=== PATIENT | female | born 1990 | race African-American/Black ===

== ENCOUNTER 2017-12-12 19:27 | Emergency (ER) | payer BC, SELFPAY ==
[2017-12-12 20:57] LABS: Urine Bacteria 20-50 /HPF (<20); Urine Culture Reflex Order NOT NEEDED; Urine RBC <5 /HPF (NONE SEEN); Urine Trichomonas PRESENT (NONE SEEN)
[2017-12-12 21:07] LABS: Urine Blood NEGATIVE (NEG); Urine Glucose NEGATIVE (NEG); Urine Protein NEGATIVE (NEG); Urine Specific Gravity >1.030 (1.005-1.030); Urine pH 5.5 (5.0-7.0)
--- NOTE | 2017-12-12 21:23 | EDPHYS ---
Physician Documentation [facility] Name: Niharika Ramirez Age: 27 yrs Sex: Female : 1990 Arrival Date: 12/12/2017 Time: 19:28 Bed 26 Private MD: ED Physician Rancho Turner HPI: 12/12 20:18 This 27 yrs old Black Female presents to ER via Ambulatory with complaints of Pelvic snw Pain - 13 Weeks Preg. 20:18 The patient presents with pelvic pain, that is located in/on the suprapubic area. snw Onset: The symptoms/episode began/occurred gradually. Modifying factors: The symptoms are alleviated by nothing. Severity of symptoms: At their worst the symptoms were moderate. The patient's method of control includes nothing. The patient has experienced a previous episode. It is unknown whether or not the patient has recently seen a physician, sees sriram CACERES'lawrence for UTI one month ago. 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 - Social history:: Smoking status: Patient/guardian denies using tobacco. ROS: 20:18 Constitutional: Negative for fever, chills, and weight loss, Eyes: Negative for injury, snw pain, redness, and discharge, ENT: Negative for injury, pain, and discharge, Neck: Negative for injury, pain, and swelling, Cardiovascular: Negative for chest pain, palpitations, and edema, Respiratory: Negative for shortness of breath, cough, wheezing, and pleuritic chest pain, Abdomen/GI: Negative for abdominal pain, nausea, vomiting, diarrhea, and constipation. Positive for lower central abdomen/pelvis pressure Back: Negative for injury and pain, : Negative for injury, bleeding, discharge, and swelling, MS/Extremity: Negative for injury and deformity, Skin: Negative for injury, rash, and discoloration, Neuro: Negative for headache, weakness, numbness, tingling, and seizure. Exam: 20:08 Constitutional: This is a well developed, well nourished patient who is awake, alert, snw and in no acute distress. Head/Face: Normocephalic, atraumatic. Eyes: Pupils equal round and reactive to light, extra-ocular motions intact. Lids and lashes normal. Conjunctiva and sclera are non-icteric and not injected. Cornea within normal limits. Periorbital areas with no swelling, redness, or edema. ENT: Nares patent. No nasal discharge, no septal abnormalities noted. Tympanic membranes are normal and external auditory canals are clear. Oropharynx with no redness, swelling, or masses, exudates, or evidence of obstruction, uvula midline. Mucous membranes moist. Neck: Trachea midline, no thyromegaly or masses palpated, and no cervical lymphadenopathy. Supple, full range of motion without nuchal rigidity, or vertebral point tenderness. No Meningismus. Chest/axilla: Normal chest wall appearance and motion. Nontender with no deformity. No lesions are appreciated. Cardiovascular: Regular rate and rhythm with a normal S1 and S2. No gallops, murmurs, or rubs. Normal PMI, no JVD. No pulse deficits. Respiratory: Lungs have equal breath sounds bilaterally, clear to auscultation and percussion. No rales, rhonchi or wheezes noted. No increased work of breathing, no retractions or nasal flaring. Back: No spinal tenderness. No costovertebral tenderness. Full range of motion. Skin: Warm, dry with normal turgor. Normal color with no rashes, no lesions, and no evidence of cellulitis. MS/ Extremity: Pulses equal, no cyanosis. Neurovascular intact. Full, normal range of motion. Neuro: Awake and alert, GCS 15, oriented to person, place, time, and situation. Cranial nerves II-XII grossly intact. Motor strength 5/5 in all extremities. Sensory grossly intact. Cerebellar exam normal. Normal gait. Psych: Awake, alert, with orientation to person, place and time. Behavior, mood, and affect are within normal limits. 20:08 Abdomen/GI: Inspection: gravid appearance, is noted, Bowel sounds: normal, Palpation: soft, mild abdominal tenderness, in the suprapubic area. Vital Signs: 19:32 BP 131 / 80; Pulse 94; Resp 16; Temp 98.4; Pulse Ox 100% on R/A; Weight 54.88 kg; aa1 Height 5 ft. 8 in. (172.72 cm); Pain 6/10; 20:41 BP 124 / 77; Pulse 82; Resp 16; Pulse Ox 99% on R/A; Pain 6/10; ao 21:48 BP 126 / 74; Pulse 83; Resp 16; Pulse Ox 100% on R/A; ao 19:32 Body Mass Index 18.40 (54.88 kg, 172.72 cm) aa1 MDM: 19:37 Patient medically screened. snw 21:23 Data reviewed: vital signs, nurses notes. Data interpreted: Pulse oximetry: on room air snw is 99 %. Interpretation: normal. Counseling: I had a detailed discussion with the patient and/or guardian regarding: the historical points, exam findings, and any diagnostic results supporting the discharge/admit diagnosis, lab results, the need for outpatient follow up, to return to the emergency department if symptoms worsen or persist or if there are any questions or concerns that arise at home. Special discussion: Based on the patient's Hx, exam, and Dx evaluation, there is no indication for emergent surgery or inpatient Tx. It is understood by the patient/guardian that if the Sx's persist or worsen they need to return immediately for re-evaluation. Based on the history and exam findings, there is no indication for further emergent testing or inpatient evaluation. I discussed with the patient/guardian the need to see the OB Gyne specialist for further evaluation of the symptoms. 12/12 19:43 Order name: Urine Culture [facility] 12/12 19:43 Order name: Urine Microscopic Only [facility] 12/12 19:44 Order name: Urine Culture [facility] 12/12 19:44 Order name: Urine Microscopic Only; Complete Time: 21:20 EDMD 12/12 20:02 Order name: Urine Dipstick--Ancillary (enter results); Complete Time: 21:20 [facility] 12/12 20:02 Order name: Urine --Ancillary (enter results); Complete Time: 21:20 [facility] 12/12 19:43 Order name: Urine Test (obtain specimen); Complete Time: 20:01 snw 12/12 19:43 Order name: Urine Dipstick-Ancillary (obtain specimen); Complete Time: 20:01 snw Administered Medications: 21:35 Drug: Flagyl 2 grams Route: PO; ao 22:07 Follow up: Response: No adverse reaction ao Disposition: 12/13 09:09 Co-signature as Attending Physician, Rancho Turner MD I agree with the assessment and [facility] plan of care. Disposition: 12/12/17 21:22 Discharged to Home. Impression: Trichomoniasis, unspecified. - Condition is Stable. - Discharge Instructions: Sexually Transmitted Disease, Trichomoniasis, Second Trimester of , [id number]. - Medication Reconciliation Form, Thank You Letter, Antibiotic Education, Prescription Opioid Use form. - Follow up: Private Physician; When: Tomorrow; Reason: Recheck today's complaints, Continuance of care, Re-evaluation by your physician. Follow up: Emergency Department; When: As needed; Reason: Worsening of condition. Signatures: Dispatcher [employer] Paige Pritchett, RN RN aa1 Rancho Turner MD MD cha Therrien, Shelly, TILE GRADER-C TILE GRADER-Csnw Timoteo Mercer RN RN ao
--- NOTE | 2017-12-12 21:23 | ER ---
Nurse's Notes [facility] Name: Niharika Ramirez Age: 27 yrs Sex: Female : 1990 Arrival Date: 12/12/2017 Time: 19:28 Bed 26 Private MD: Diagnosis: Trichomoniasis, unspecified Presentation: 12/12 19:30 Presenting complaint: Patient states: she is 13 weeks and started having aa1 pelvic pain yesterday. Denies bleeding. States she has already seen OB for this and had confirmed IUP. Transition of care: patient was not received from another setting of care. Onset of symptoms was December 11, 2017. Care prior to arrival: None. 19:30 Method Of Arrival: Ambulatory aa1 19:30 Acuity: CALEB 4 aa1 Triage Assessment: 19:32 General: Appears in no apparent distress. comfortable, Behavior is calm, cooperative, aa1 appropriate for age. 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 - Social history:: Smoking status: Patient/guardian denies using tobacco. Screenin:17 Abuse screen: Denies threats or abuse. Denies injuries from another. Nutritional ao screening: No deficits noted. Tuberculosis screening: No symptoms or risk factors identified. Fall Risk None identified. Assessment: 20:16 General: Appears in no apparent distress. comfortable, Behavior is calm, cooperative, ao appropriate for age. Pain: Complains of pain in back Pain currently is 6 out of 10 on a pain scale. Neuro: Level of Consciousness is awake, alert, obeys commands, Oriented to person, place, time, situation, Appropriate for age Moves all extremities. Speech is normal, Facial symmetry appears normal, Pupils are PERRLA. Cardiovascular: Capillary refill < 3 seconds Patient's skin is warm and dry. Respiratory: Airway is patent Respiratory effort is even, unlabored, Respiratory pattern is regular, symmetrical. GI: Abdomen is non-distended. : Urine is yellow. EENT: No signs and/or symptoms were reported regarding the EENT system. Derm: No signs and/or symptoms reported regarding the dermatologic system. Musculoskeletal: No signs and/or symptoms reported regarding the musculoskeletal system. 20:41 Reassessment: Patient appears in no apparent distress at this time. Patient and/or ao family updated on plan of care and expected duration. Pain level reassessed. Patient is alert, oriented x 3, equal unlabored respirations, skin warm/dry/pink. Patient is in pain but does not require pain medication. 21:48 Reassessment: Patient appears in no apparent distress at this time. Patient and/or ao family updated on plan of care and expected duration. Pain level reassessed. Patient is alert, oriented x 3, equal unlabored respirations, skin warm/dry/pink. Patient is for discharge and waiting on provider to see patient. Vital Signs: 19:32 BP 131 / 80; Pulse 94; Resp 16; Temp 98.4; Pulse Ox 100% on R/A; Weight 54.88 kg; aa1 Height 5 ft. 8 in. (172.72 cm); Pain 6/10; 20:41 BP 124 / 77; Pulse 82; Resp 16; Pulse Ox 99% on R/A; Pain 6/10; ao 21:48 BP 126 / 74; Pulse 83; Resp 16; Pulse Ox 100% on R/A; ao 19:32 Body Mass Index 18.40 (54.88 kg, 172.72 cm) aa1 ED Course: 19:28 Patient arrived in ED. as 19:32 Triage completed. aa1 19:32 Arm band placed on right wrist. aa1 19:37 Ifrah Bowen FNP-C is [facility]. snw 19:37 Rancho Turner MD is Attending Physician. snw 19:50 Timoteo Mercer RN is Primary Nurse. ao 20:17 Patient has correct armband on for positive identification. Pulse ox on. NIBP on. ao 20:35 Urine Microscopic Only Sent. ao 20:35 Urine Culture Sent. ao 20:35 Urine Culture Sent. ao 20:35 Urine Microscopic Only Sent. ao 22:06 No provider procedures requiring assistance completed. Patient did not have IV access ao during this emergency room visit. Administered Medications: 21:35 Drug: Flagyl 2 grams Route: PO; ao 22:07 Follow up: Response: No adverse reaction ao Outcome: 21:22 Discharge ordered by . snw 22:06 Discharged to home ambulatory. ao 22:06 Condition: stable 22:06 Discharge instructions given to patient, Instructed on discharge instructions, follow up and referral plans. Demonstrated understanding of instructions, follow-up care, medications. 22:07 Patient left the ED. ao Addendum: 12/16/2017 16:40 Addendum: Culture Results: Positive urine culture. Phone call Attempt #1 called at s s [phone], not a working number. Signatures: Paige Bianchi RN RN aa1 Ifrah Bowen, NURSE EXAMINER-C NURSE EXAMINER-Noblew Viji Gonzalez Shelby, RN RN Timoteo Mercer RN RN ao
[2017-12-12] MEDS ORDERED: metroNIDAZOLE 500 MG TABLET ONE (21:33)
[2017-12-12 22:17] VITALS: TEMP 98.4
[2017-12-12 22:20] VITALS: BP 126/74; O2SAT 100
== END 2017-12-12 22:07 | disposition home or self-care (01) ==
LOC: ER 19:27
DX: A59.9 Trichomoniasis, unspecified (principal); Z3A.13 13 weeks gestation of pregnancy
CPT/HCPCS: 81003; 81015; 81025; 87077; 87086; 87088; 87186; 99283

== ENCOUNTER 2020-01-04 16:52 | Emergency (ER) | payer BC ==
--- OUTSIDE RECORDS SUMMARY | 2020-01-04 16:54 | XMS REPORT ---
:1990 Author Organization [facility] t Address [address] [place] [address] Dr. Cantu [address] [place] [id number] Care Team Providers Name Role Phone Unavailable Unavailable Unavailable Problems This patient has no known problems. Allergies, Adverse Reactions, Alerts This patient has no known allergies or adverse reactions. Medications This patient has no known medications.
[2020-01-04 18:59] LABS: Absolute Lymphocytes (CBC) 1.5 K/uL (0.7-4.9); Basophils % 0.8 % (0-1.3); Hematocrit 32.5 % (36.0-45.0); Lymphocytes % 21.5 % (15.3-44.8); MPV 9.2 fL (7.6-11.3); RBC Red Blood Cell Count 3.64 M/uL (3.86-4.86)
--- NOTE | 2020-01-04 19:12 | EDPHYS ---
Physician Documentation [facility] Name: Niharika Ramirez Age: 29 yrs Sex: Female : 1990 Arrival Date: 01/04/2020 Time: 16:53 Bed 8 Private MD: ED Physician Matt Dunn HPI: 01/03 18:03 This 29 yrs old Black Female presents to ER via Ambulatory with complaints of Nose kb Bleed, Dizziness. 18:03 The patient presents with a nose bleed, that is apparently anterior, from the right kb nare, occurred from an unknown cause, that is continuous causative factors include: unknown, and the bleeding resolved prior to arrival. Onset: The symptoms/episode began/occurred just prior to arrival. Modifying factors: The symptoms are alleviated by nothing. the symptoms are aggravated by nothing. Associated signs and symptoms: Loss of consciousness: the patient experienced no loss of consciousness, Pertinent positives: dizziness, weakness, palpitations. Severity of symptoms: At their worst the symptoms were moderate in the emergency department the symptoms have improved markedly. The patient has experienced similar episodes in the past, a few times. The patient has not recently seen a physician. Pt reports nosebleed that lasted approx 30 minutes, then she started having dizziness, weakness and palpitations. Weakness persists, but dizziness, nosebleed and palpitations resolved. 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 - Social history:: Smoking status: Patient denies any tobacco usage or history of. ROS: 18:02 Constitutional: Negative for fever, chills, and weight loss, Neck: Negative for injury, kb pain, and swelling, Respiratory: Negative for shortness of breath, cough, wheezing, and pleuritic chest pain, Abdomen/GI: Negative for abdominal pain, nausea, vomiting, diarrhea, and constipation, MS/Extremity: Negative for injury and deformity, Skin: Negative for injury, rash, and discoloration. 18:02 ENT: Positive for nose bleed. 18:02 Cardiovascular: Positive for palpitations. 18:02 Neuro: Positive for dizziness, weakness. Exam: 18:02 Constitutional: This is a well developed, well nourished patient who is awake, alert, kb and in no acute distress. Head/Face: Normocephalic, atraumatic. Neck: Trachea midline, no thyromegaly or masses palpated, and no cervical lymphadenopathy. Supple, full range of motion without nuchal rigidity, or vertebral point tenderness. No Meningismus. Chest/axilla: Normal chest wall appearance and motion. Nontender with no deformity. No lesions are appreciated. Cardiovascular: Regular rate and rhythm with a normal S1 and S2. No gallops, murmurs, or rubs. Normal PMI, no JVD. No pulse deficits. Respiratory: Lungs have equal breath sounds bilaterally, clear to auscultation and percussion. No rales, rhonchi or wheezes noted. No increased work of breathing, no retractions or nasal flaring. Abdomen/GI: Soft, non-tender, with normal bowel sounds. No distension or tympany. No guarding or rebound. No evidence of tenderness throughout. Skin: Warm, dry with normal turgor. Normal color with no rashes, no lesions, and no evidence of cellulitis. MS/ Extremity: Pulses equal, no cyanosis. Neurovascular intact. Full, normal range of motion. Neuro: Awake and alert, GCS 15, oriented to person, place, time, and situation. Cranial nerves II-XII grossly intact. Motor strength 5/5 in all extremities. Sensory grossly intact. Cerebellar exam normal. Normal gait. 18:02 ENT: Nose: clotted blood, in right nare. Vital Signs: 17:08 BP 118 / 78; Pulse 73; Resp 18 S; Temp 97.8; Pulse Ox 100% on R/A; Weight 54.88 kg (R); ca1 Height 5 ft. 8 in. (172.72 cm) (R); 17:30 BP 129 / 76 Supine; kj1 17:32 BP 127 / 80 Sitting; kj1 17:34 BP 140 / 82 Standing; kj1 18:26 BP 123 / 78; Pulse 67; Resp 17; Pulse Ox 100% ; bp 17:08 Body Mass Index 18.40 (54.88 kg, 172.72 cm) ca1 MDM: 17:15 Patient medically screened. kb 18:01 Data reviewed: vital signs, nurses notes. Data interpreted: Pulse oximetry: on room air kb is 100 %. Interpretation: normal. 18:03 Counseling: I had a detailed discussion with the patient and/or guardian regarding: the kb historical points, exam findings, and any diagnostic results supporting the discharge/admit diagnosis, lab results, the need for outpatient follow up, an ENT specialist, to return to the emergency department if symptoms worsen or persist or if there are any questions or concerns that arise at home. 01/03 17:27 Order name: CBC with Diff kb 01/03 17:28 Order name: CBC with Automated Diff; Complete Time: 19:11 EDMS 01/03 17:15 Order name: Orthostatics; Complete Time: 17:30 kb 01/03 17:27 Order name: EKG; Complete Time: 17:28 kb 01/03 17:27 Order name: EKG - Nurse/Tech; Complete Time: 17:57 kb Administered Medications: No medications were administered Disposition: 01/04 07:21 Co-signature as Attending Physician, Matt Dunn MD. rn Disposition: 01/04/20 19:11 Discharged to Home. Impression: Epistaxis, Weakness. - Condition is Stable. - Discharge Instructions: Weakness, [id number], Nosebleed, Vsfa-[id number]. - Medication Reconciliation Form, Thank You Letter, Antibiotic Education, Prescription Opioid Use, Work release form form. - Follow up: Emergency Department; When: As needed; Reason: Worsening of condition. Follow up: Private Physician; When: 2 - 3 days; Reason: Recheck today's complaints, Continuance of care, Re-evaluation by your physician. Signatures: Dispatcher [employer] [facility] Belle Liang, HOBBIES AND CRAFTS SALES REPRESENTATIVE-C HOBBIES AND CRAFTS SALES REPRESENTATIVE-Ckb Matt Dunn MD MD rn Acob, Clare, RN RN ca1 Corrections: (The following items were deleted from the chart) 01/03 19:23 19:11 01/04/2020 19:11 Discharged to Home. Impression: Epistaxis; Weakness. Condition ca1 is Stable. Discharge Instructions: Weakness, [id number], Nosebleed, [id number]-[id number]. Forms are Medication Reconciliation Form, Thank You Letter, Antibiotic Education, Prescription Opioid Use. Follow up: Emergency Department; When: As needed; Reason: Worsening of condition. Follow up: Private Physician; When: 2 - 3 days; Reason: Recheck today's complaints, Continuance of care, Re-evaluation by your physician. kb
--- NOTE | 2020-01-04 19:12 | ER ---
Nurse's Notes [facility] Name: Niharika Ramirez Age: 29 yrs Sex: Female : 1990 Arrival Date: 01/04/2020 Time: 16:53 Bed 8 Private MD: Diagnosis: Epistaxis;Weakness Presentation: 01/03 17:08 Chief complaint: Patient states: Nosebleed today around 1540, it lasted 30 minutes. ca1 Reports dizziness, weakness and palpitations after the nosebleed. Reports history of nosebleeds while . Coronavirus screen: Proceed with normal triage. Patient denies a cough. Patient denies shortness of breath or difficulty breathing. Patient denies measured and/or subjective temperature greater than 100.4F prior to today's visit. Patient denies travel on a cruise ship or to a country the [facility] currently lists as an affected area. Patient denies contact with known and/or suspected case of COVID-19. Ebola Screen: Patient negative for fever greater than or equal to 101.5 degrees Fahrenheit, and additional compatible Ebola Virus Disease symptoms Patient denies exposure to infectious person. Patient denies travel to an Ebola-affected area in the 21 days before illness onset. No symptoms or risks identified at this time. Initial Sepsis Screen: Does the patient meet any 2 criteria? No. Patient's initial sepsis screen is negative. Does the patient have a suspected source of infection? No. Patient's initial sepsis screen is negative. Risk Assessment: Do you want to hurt yourself or someone else? Patient reports no desire to harm self or others. Onset of symptoms was January 04, 2020 at 15:40. 17:08 Method Of Arrival: Ambulatory ca1 17:08 Acuity: CALEB 3 ca1 Triage Assessment: 17:16 General: Appears in no apparent distress. comfortable, Behavior is cooperative, bp appropriate for age, anxious. Pain: Denies pain. EENT: Reports NOSEBLEED. Neuro: No deficits noted. Cardiovascular: No deficits noted. Respiratory: No deficits noted. GI: No signs and/or symptoms were reported involving the gastrointestinal system. : No signs and/or symptoms were reported regarding the genitourinary system. Derm: No deficits noted. Musculoskeletal: No deficits noted. 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 - Social history:: Smoking status: Patient denies any tobacco usage or history of. Screenin:17 Abuse screen: Denies threats or abuse. Denies injuries from another. Nutritional bp screening: No deficits noted. Tuberculosis screening: No symptoms or risk factors identified. Fall Risk None identified. Assessment: 17:17 General: SEE TRIAGE NOTE. bp 18:26 Reassessment: PHLEBOTOMY CONTACTED FOR CBC REDRAW. bp Vital Signs: 17:08 BP 118 / 78; Pulse 73; Resp 18 S; Temp 97.8; Pulse Ox 100% on R/A; Weight 54.88 kg (R); ca1 Height 5 ft. 8 in. (172.72 cm) (R); 17:30 BP 129 / 76 Supine; kj1 17:32 BP 127 / 80 Sitting; kj1 17:34 BP 140 / 82 Standing; kj1 18:26 BP 123 / 78; Pulse 67; Resp 17; Pulse Ox 100% ; bp 17:08 Body Mass Index 18.40 (54.88 kg, 172.72 cm) ca1 ED Course: 16:53 Patient arrived in ED. ag5 17:12 Triage completed. ca1 17:12 Belle Laing [facility]-C [facility]. kb 17:13 Matt Dunn MD is Attending Physician. kb 17:13 Arm band placed on right wrist. ca1 17:15 Dieudonne Tapia, PABLO is Primary Nurse. bp 17:17 Patient has correct armband on for positive identification. Bed in low position. Call bp light in reach. Side rails up X2. 17:57 CBC with Automated Diff Sent. kj1 18:14 CBC with Diff Sent. kj1 19:22 No provider procedures requiring assistance completed. Patient did not have IV access iw during this emergency room visit. Administered Medications: No medications were administered Outcome: 19:11 Discharge ordered by . kb 19:22 Discharged to home ambulatory. iw 19:22 Condition: good 19:22 Discharge instructions given to patient, Instructed on discharge instructions, follow up and referral plans. Demonstrated understanding of instructions, follow-up care. 19:23 Patient left the ED. ca1 Signatures: Belle Liang, DIAMOND-Selam FIELDS-Sharla Khan RN RN iw Peltier, Brian, RN RN bp Acob, Cheryl, RN RN ca1 Luis Junior ag5 Kerri Liang kj1
[2020-01-04 19:30] VITALS: TEMP 97.8; O2SAT 100
[2020-01-04 19:35] VITALS: BP 123/78
--- NOTE | 2020-01-05 10:51 | EKG ---
Test Date: 2020-01-04 Test Time: 17:36:20 Traffic Incident Management Manager: LAURIE MEASUREMENT RESULTS: Intervals: Rate: 58 WI: 132 QRSD: 106 QT: 408 QTc: 400 Alicia: P: 65 WI: 132 QRS: 85 T: 53 INTERPRETIVE STATEMENTS: Sinus bradycardia Incomplete right bundle branch block Borderline ECG No previous ECG available for comparison Electronically Signed On 01-05-20 10:49:10 CDT by Dusty Hutchins
== END 2020-01-04 19:23 | disposition home or self-care (01) ==
LOC: ER 16:52
DX: R53.1 Weakness (principal)
CPT/HCPCS: 36415; 85025; 93005; 99283

== ENCOUNTER 2021-09-16 20:19 | Emergency (ER) | payer OTHER ==
--- OUTSIDE RECORDS SUMMARY | 2021-09-16 20:50 | XMS REPORT | Continuity of Care Document ---
:1990 Author Organization [facility] t Address [address] [place] [address] Care Team Providers Name Role Phone ANDREW Primary Care Physician Unavailable VALENTE Attending Clinician Unavailable Valente FIELDS Attending Clinician Unknown Attending Clinician Unavailable Moe FIELDS Attending Clinician JAIME Attending Clinician Unavailable Jaime ROCK Attending Clinician SULEMAN Attending Clinician Unavailable ANDRA GUO Attending Clinician Unavailable Bartolome RN, D Attending Clinician Unavailable Only, Db Test Attending Clinician Unavailable Jono FIELDS Attending Clinician JONO Attending Clinician Unavailable Suleman ROCK Attending Clinician Taurus ROCK Attending Clinician Andrew FIELDS Attending Clinician ANDREW Attending Clinician Unavailable NATALIE THAO Attending Clinician Unavailable ROYER Attending Clinician Unavailable CHANTAL Attending Clinician Unavailable Doctor Unassigned, Name Attending Clinician Unavailable Alvaro Thompson MD Attending Clinician ALVARO THOMPSON Attending Clinician Unavailable ALVARO THOMPSON Attending Clinician Unavailable Lab, Fam Pob I Attending Clinician Unavailable Gini Salazar MD Attending Clinician Jay Jay REESE Attending Clinician Unavailable Andra Gou MD Attending Clinician Nurse, Women's Health Attending Clinician Unavailable Kely GRANT Attending Clinician KELY Attending Clinician Unavailable Arthur ROCK Attending Clinician Pob, Lab Main Attending Clinician Unavailable Ultrasound, Mfm Attending Clinician Unavailable Noel ROCK F Attending Clinician 2, Lab Attending Clinician Unavailable Fanta Anthony MD Attending Clinician ARTHUR Admitting Clinician Unavailable SARI, ANDRA Admitting Clinician Unavailable SANDOVAL Admitting Clinician Unavailable Arthur ROCK Admitting Clinician Andra Guo MD Admitting Clinician Payers Payer Name Policy Type Policy Number Effective Date Expiration Date S javon [place] [facility] [id number] 2020 HEALTH 00:00:00 [employer] [place] [id number] 2017 00:00:00 [place] [facility] [id number] 2017 HEALTH CHIP 00:00:00 Advance Directives Directive Decision Effective Termination Comments Source Date Date Healthcare Agents on N/A Univ ersity FileNameRelationshipHealthcare [facility] Agent Medical RelationshipCommunication[facility] Care [phone] (Mobile) Problems Condition Condition Condition Status Onset Resolution Last Treating Co mments Source Name Details Category Date Date Treatment Clinician Date Elevated Elevated Disease Active Unive rs BP without BP without 3-11 [place] of diagnosis [place] 00:[place] of of 00 Medical hypertensi hypertensi Br anch on on Full-term Full-term Disease Active 2019-09 Uni vers premature premature 2-08 [place] of rupture [place] membranes membranes [address] [place] [address] with onset with onset Br anch of labor of labor more than more than 24 hours 24 hours following following rupture rupture Previous Previous Disease Active 2019- Unive rs 5-13 ity of section section 00:00: [address] Branch Supervisio Supervisio Disease Active 2019- U nivers n of other n of other 5-13 it y of normal normal 00:00: [place] 00 [facility] Branch History of History of Disease Active 2020-0 U nivers 5-13 [place] of delivery[place], [place] [facility] Branch Routine Routine Disease Active 2017-09 Univers 0-01 [place] of follow-up [place] 00:[place] 00 [facility] 38 weeks 38 weeks Disease Active Unive rs gestation gestation 9-10 ity of of of 00:00: [place] 00 [facility] Liveborn Liveborn Disease Active Unive rs infant, of infant, of 9-10 it y of [place] , , 00 Me dical born in born in [facility] hospital by by delivery delivery Supervisio Supervisio Disease Active U nivers n of n of 3-13 ity of high-risk high-risk 00:[place] [facility] Maternal Maternal Disease Active Overview: Un ron varicella, varicella, 2-14 Formattin ity of non-immune non-immune 00:00: g of this [place] 00 note Medical might be Branch different from the original. Address in Postpartu m period. Allergies, Adverse Reactions, Alerts Allergy Allergy Status Severity Reaction(s) Onset Inactive Treating Comm ents Source Name Type Date Date Clinician NO KNOWN Drug Active Univers ALLERGIE Class ity of S [facility] Social History Social Habit Start Date Stop Date Quantity Comments Source [facility]ION [facility]30 [facility] Exposure to Not sure [facility] SARS-CoV-2 [facility] (event) [place] Alcohol intake 2021-05-11 2021-05-11 [facility]00:00 non-drinker of [facility] alcohol [place] (finding) History SDOH 2020-08-11 2020-08-11 5 University o f Financial 00:00:00 00:00:00 [facility] Education 2020-08-10 2020-08-10 13 University 00:00:00 00:00:00 [facility] Tobacco use and 2017-10-16 2017-10-16 Never used Universit y of exposure 00:00:00 00:00:00 [facility] Sex Ass[birth year] At [birth year] Universit y of 00:00:00 00:00:00 [facility] Smoking Status Start Date Stop Date Source Never smoker [facility] Medications Ordered Filled Start Stop Current Ordering Indication Dosage Frequency Signature Comments Components Source Medication Medication Date Date Medication? Clinician (SIG) Name Name ondansetron 2020-09- No [id number] 4mg U nivers (ZOFRAN) 2- 12- ity of tablet 4 mg 00:45: 23:51 [place] 00 :00 Medical Branch ondansetron 2020-09- No [id number] 4mg 4 mg, Univers (ZOFRAN) 2-24 12- Oral, ity of tablet 4 mg 00:45: 23:51 ONCE, 1 [place] :[place] dose, On Medical [place] [facility] 08/25/21 at 1845, Routine ondansetron 2020-09 Yes [id number] 4mg Take 1 Univers 4 mg 2-23 tablet by ity of disintegrat 00:00: mouth [place] ing tablet 00 every 8 Medica l (eight) Branch hours as needed for Nausea and Vomiting (N/V). levoFLOXaci 2020-09 Yes [id number] 500mg Take 1 Univers n 1-23 tablet by ity of (LEVAQUIN) 00:00: mouth [place] 500 mg 00 every 24 Medical tablet (twenty-fo Branch ur) hours. benzonatate 2020-09 Yes [id number] 100mg Take 1 Univers 100 mg 1-23 capsule by ity of capsule 00:00: mouth 3 [place] 00 (three) Medical times Branch daily as needed for Cough. montelukast 2020-09 Yes [id number] 10mg Take 1 Univers 10 mg 1-23 tablet by ity of tablet 00:00: mouth [place] 00 every 24 Medical (twenty-fo Branch ur) hours as needed (symptoms) . loratadine 2020-09 Yes [id number] 10mg Take 1 U nivers 10 mg 1-23 tablet by ity of tablet 00:00: mouth [place] 00 daily. Medical Branch benzonatate 2020-09 Yes [id number] 100mg Take 1 Univers 100 mg 1-23 capsule by ity of capsule 00:00: mouth 3 [place] 00 (three) Medical times Branch daily as needed for Cough. montelukast 2020-09 Yes [id number] 10mg Take 1 Univers 10 mg 1-23 tablet by ity of tablet 00:00: mouth [place] 00 every 24 Medical (twenty-fo Branch ur) hours as needed (symptoms) . loratadine 2020-09 Yes [id number] 10mg Take 1 U nivers 10 mg 1-23 tablet by ity of tablet 00:00: mouth [place] 00 daily. Medical Branch levoFLOXaci 2020-09- No [id number] 500mg Take 1 Univers n 1-23 12-23 tablet by ity of (LEVAQUIN) 00:00: 00:00 mouth [place] 500 mg 00 :00 every 24 Medical tablet (twenty-fo Branch ur) hours. triamcinolo 2020- No [id number] 20mg [facility] 05-11 [id number] ity of acetonide 23:00: 21:52 [place] (KENALOG) 00 :00 Medical injection Branch 20 mg triamcinolo 2020- No [id number] 20mg 20 mg, [facility] ne 05-11 [id number] Intramuscu ity of acetonide 23:00: 21:52 lar, ONCE, [place] (KENALOG) 00 :00 1 dose, Medical injection Sun05/11/21 Bran ch 20 mg at 1800, Routine triamcinolo 2020- No [id number] 20mg [facility] 05-11 [id number] ity of acetonide 23:00: 21:52 [place] (KENALOG) 00 :00 Medical injection Branch 20 mg triamcinolo 2020- No [id number] 20mg 20 mg, [facility] 05-11 [id number] Intramuscu ity of acetonide 23:00: 21:52 lar, ONCE, [place] (KENALOG) 00 :00 1 dose, Medical injection Sun05/11/21 Bran ch 20 mg at 1800, Routine triamcinolo 2020- No [id number] 20mg [facility] 05-11 [id number] ity of acetonide 23:00: 21:52 [place] (KENALOG) 00 :00 Medical injection Branch 20 mg triamcinolo 2020- No [id number] 20mg 20 mg, [facility] 05-11 [id number] Intramuscu ity of acetonide 23:00: 21:52 lar, ONCE, [place] (KENALOG) 00 :00 1 dose, Medical injection Sun05/11/21 Bran ch 20 mg at 1800, Routine triamcinolo 2020- No [id number] 20mg Univers al 05-11 [id number] ity of acetonide 23:00: 21:52 [place] (KENALOG) 00 :00 Medical injection Branch 20 mg triamcinolo 2020- No [id number] 20mg 20 mg, Univers al 05-11 [id number] Intramuscu ity of acetonide 23:00: 21:52 lar, ONCE, [place] (KENALOG) 00 :00 1 dose, Medical injection 05/11/21 Bran ch 20 mg at 1800, Routine medroxyPROG 2020- No [id number] 150mg Univers ESTERone 11-11 ity of (DEPO-PROVE 23:45: 22:53 [place] RA) 00 :00 Medical injection Branch 150 mg medroxyPROG 2020- No [id number] 150mg 150 mg, Univers ESTERone 11-11 Intramuscu ity of (DEPO-PROVE 23:45: 22:53 lar, ONCE, [place] RA) 00 :00 1 dose, Medical injection [place] [facility] 150 mg 11/11/20 at 1745, Routine medroxyPROG 2020- No [id number] 150mg Univers ESTERone 11-11 ity of (DEPO-PROVE 23:45: 22:53 [place] RA) 00 :00 Medical injection Branch 150 mg medroxyPROG 2020- No [id number] 150mg 150 mg, Univers ESTERone 11-11 Intramuscu ity of (DEPO-PROVE 23:45: 22:53 lar, ONCE, [place] RA) 00 :00 1 dose, Medical injection [place] [facility] 150 mg 11/11/20 at 1745, Routine medroxyPROG 2019-09 2020- No 150mg 150 mg, U nivers ESTERone 2-10 12-10 Intramuscu ity of (DEPO-PROVE 18:30: 18:09 lar, ONCE, [place] RA) 00 :00 1 dose, Medical injection [place] [facility] 150 mg 08/12/20 at 1230, Routine 2019-09 2020- No Take by [facility] ers 25/iron 2-10 12-10 mouth. ity of fum/folic/d 14:05: 00:00 [place] ritchie 52 :00 Medical (-1 Branch ORAL) gabapentin 2019-09 Yes 300mg 300 mg, Uni vers (NEURONTIN) 2-10 Oral, TID, it y of capsule 300 14:00: First dose [place] mg 00 on [facility] 08/12/20 Branch at 0800, Until Discontinu ed, Routine 2019-09 Yes [id number] 1{tbl} Take 1 Univers vitamin 2-10 tablet by ity of w/FA tablet 00:00: mouth [place] 00 daily. Medical Branch 2019-09 Yes [id number] 1{tbl} Take 1 Univers vitamin 2-10 tablet by ity of w/FA tablet 00:00: mouth [place] 00 daily. Medical Branch 2019-09 Yes [id number] 1{tbl} Take 1 Univers vitamin 2-10 tablet by ity of w/FA tablet 00:00: mouth [place] 00 daily. Medical Branch 2019-09 Yes [id number] 1{tbl} Take 1 Univers vitamin 2-10 tablet by ity of w/FA tablet 00:00: mouth [place] 00 daily. Medical Branch 2019-09 Yes [id number] 1{tbl} Take 1 Univers vitamin 2-10 tablet by ity of w/FA tablet 00:00: mouth [place] 00 daily. Medical Branch acetaminoph 2019-09 Yes [id number] 650mg Take 2 Univers en 325 mg 2-10 tablets by ity of tablet 00:00: mouth [place] 00 every 6 Medical (six) Branch hours as needed for Pain (scale 1-3) or Pain (scale 4-6). 2019-09 Yes [id number] 1{tbl} Take 1 Univers vitamin 2-10 tablet by ity of w/FA tablet 00:00: mouth [place] 00 daily. Medical Branch docusate 2019-09 Yes [id number] 240mg Take 1 U nivers calcium 240 2-10 capsule by it y of mg capsule 00:00: mouth [place] 00 daily as Medical needed for Branch Constipati on. ferrous 2019-09 Yes [id number] 325mg Take 1 Un ron sulfate 325 2-10 tablet by ity of mg (65 mg 00:00: mouth 2 [place] iron) 00 (two) Medical tablet times Branch daily. ibuprofen 2019-09 Yes [id number] 600mg Take 1 Univers 600 mg 2-10 tablet by ity of tablet 00:00: mouth [place] 00 every 6 Medical (six) Branch hours as needed (Pain). Take with food or milk. acetaminoph 2019-09 Yes [id number] 650mg Take 2 Univers en 325 mg 2-10 tablets by ity of tablet 00:00: mouth [place] 00 every 6 Medical (six) Branch hours as needed for Pain (scale 1-3) or Pain (scale 4-6). 2019-09 Yes [id number] 1{tbl} Take 1 Univers vitamin 2-10 tablet by ity of w/FA tablet 00:00: mouth [place] 00 daily. Medical Branch docusate 2019-09 Yes [id number] 240mg Take 1 U nivers calcium 240 2-10 capsule by it y of mg capsule 00:00: mouth [place] 00 daily as Medical needed for Branch Constipati on. ferrous 2019-09 Yes [id number] 325mg Take 1 Un ron sulfate 325 2-10 tablet by ity of mg (65 mg 00:00: mouth 2 [place] iron) 00 (two) Medical tablet times Branch daily. ibuprofen 2019-09 Yes [id number] 600mg Take 1 Univers 600 mg 2-10 tablet by ity of tablet 00:00: mouth [place] 00 every 6 Medical (six) Branch hours as needed (Pain). Take with food or milk. 2019-09 Yes [id number] 1{tbl} Take 1 Univers vitamin 2-10 tablet by ity of w/FA tablet 00:00: mouth [place] 00 daily. Medical Branch 2019-09 Yes [id number] 1{tbl} Take 1 Univers vitamin 2-10 tablet by ity of w/FA tablet 00:00: mouth [place] 00 daily. Medical Branch 2019-09 Yes [id number] 1{tbl} Take 1 Univers vitamin 2-10 tablet by ity of w/FA tablet 00:00: mouth [place] 00 daily. Medical Branch 2019-09 Yes [id number] 1{tbl} Take 1 Univers vitamin 2-10 tablet by ity of w/FA tablet 00:00: mouth [place] 00 daily. Medical Branch 2019-09 Yes [id number] 1{tbl} Take 1 Univers vitamin 2-10 tablet by ity of w/FA tablet 00:00: mouth [place] 00 daily. Medical Branch 2019-09 Yes [id number] 1{tbl} Take 1 Univers vitamin 2-10 tablet by ity of w/FA tablet 00:00: mouth [place] 00 daily. Medical Branch 2020- Yes [id number] 1{tbl} Take 1 Univers vitamin 2-10 tablet by ity of w/FA tablet 00:00: mouth [place] 00 daily. Medical Branch 2020- Yes [id number] 1{tbl} Take 1 Univers vitamin 2-10 tablet by ity of w/FA tablet 00:00: mouth [place] 00 daily. Medical Branch 2020- Yes [id number] 1{tbl} Take 1 Univers vitamin 2-10 tablet by ity of w/FA tablet 00:00: mouth [place] 00 daily. Medical Branch 2020- Yes [id number] 1{tbl} Take 1 Univers vitamin 2-10 tablet by ity of w/FA tablet 00:00: mouth [place] 00 daily. Medical Branch 2020- Yes [id number] 1{tbl} Take 1 Univers vitamin 2-10 tablet by ity of w/FA tablet 00:00: mouth [place] 00 daily. Medical Branch 2020- Yes [id number] 1{tbl} Take 1 Univers vitamin 2-10 tablet by ity of w/FA tablet 00:00: mouth [place] 00 daily. Medical Branch 2020- Yes [id number] 1{tbl} Take 1 Univers vitamin 2-10 tablet by ity of w/FA tablet 00:00: mouth [place] 00 daily. Medical Branch 2020- Yes [id number] 1{tbl} Take 1 Univers vitamin 2-10 tablet by ity of w/FA tablet 00:00: mouth [place] 00 daily. Medical Branch 2020- Yes [id number] 1{tbl} Take 1 Univers vitamin 2-10 tablet by ity of w/FA tablet 00:00: mouth [place] 00 daily. Medical Branch 2020- Yes [id number] 1{tbl} Take 1 Univers vitamin 2-10 tablet by ity of w/FA tablet 00:00: mouth [place] 00 daily. Medical Branch 2020- Yes [id number] 1{tbl} Take 1 Univers vitamin 2-10 tablet by ity of w/FA tablet 00:00: mouth [place] 00 daily. Medical Branch 2020- Yes [id number] 1{tbl} Take 1 Univers vitamin 2-10 tablet by ity of w/FA tablet 00:00: mouth [place] 00 daily. Medical Branch acetaminoph 2019-09- No [id number] 650mg Take 2 Univers en 325 mg 2-11 tablets by ity of tablet 00:00: 00:00 mouth [place] 00 :00 every 6 Medical (six) Branch hours as needed for Pain (scale 1-3) or Pain (scale 4-6). docusate 2019-09- No [id number] 240mg Take 1 Univers calcium 240 10-13- capsule by i ty of mg capsule 00:00: 00:00 mouth once [place] 00 :00 daily as Medical needed for Branch Constipati on. ferrous 2019-09 No [id number] 325mg Take 1 U nivers sulfate 325 -06 05-11 tablet by it y of mg (65 mg 00:00: 00:00 mouth 2 [place] iron) 00 :00 (two) Medical tablet times Branch daily. ibuprofen 2019-09 No [id number] 600mg Take 1 Univers 600 mg 10-13-11 tablet by ity of tablet 00:00: 00:00 mouth [place] 00 :00 every 6 Medical (six) Branch hours as needed (Pain). Take with food or milk. acetaminoph 2019-09- No [id number] 650mg Take 2 Univers en 325 mg 2-11 tablets by ity of tablet 00:00: 00:00 mouth [place] 00 :00 every 6 Medical (six) Branch hours as needed for Pain (scale 1-3) or Pain (scale 4-6). docusate 2019-09- No [id number] 240mg Take 1 Univers calcium 240 10-13-11 capsule by i ty of mg capsule 00:00: 00:00 mouth once [place] 00 :00 daily as Medical needed for Branch Constipati on. ferrous 2019-09- No [id number] 325mg Take 1 U nivers sulfate 325 -06 05-11 tablet by it y of mg (65 mg 00:00: 00:00 mouth 2 [place] iron) 00 :00 (two) Medical tablet times Branch daily. ibuprofen 2019-09- No [id number] 600mg Take 1 Univers 600 mg 2-06 05-11 tablet by ity of tablet 00:00: 00:00 mouth [place] 00 :00 every 6 Medical (six) Branch hours as needed (Pain). Take with food or milk. HYDROcodone 2019-09- No [id number] 1{tbl} Take 1 U nivers -acetaminop 2-10 12-18 tablet by it y of hen 5-325 00:00: 05:59 mouth [place] mg tablet 00 :00 every 6 Medical (six) Branch hours as needed for Pain (scale 7-10) for up to 7 days. Do not exceed 3 grams of acetaminop hen in 24 hours. Indication s: acute pain HYDROcodone 2019-09- No [id number] 1{tbl} Take 1 U nivers -acetaminop 2-10 12-18 tablet by it y of hen 5-325 00:00: 05:59 mouth [place] mg tablet 00 :00 every 6 Medical (six) Branch hours as needed for Pain (scale 7-10) for up to 7 days. Do not exceed 3 grams of acetaminop hen in 24 hours. Indication s: acute pain gabapentin 2019-09 2020- No [id number] 300mg Take 1 Univers 300 mg 2-06 14-16 capsule by ity of capsule 00:00: 05:59 mouth 3 [place] 00 :00 (three) Medical times Branch daily for 5 days. ferrous 2019-09 Yes 325mg 325 mg, Univer s sulfate 2-09 Oral, TID ity of tablet 325 14:00: MEALS, [place] mg 00 First dose Medical on Sun Branch 08/11/20 at 0800, Until Discontinu ed, Routine acetaminoph 2019-09 Yes 650mg 650 mg, Un ron en 2-09 Oral, Q6H, ity of (TYLENOL) 12:00: First dose [place] tablet 650 00 on Sun Medical mg 08/11/20 at Branch 0600, Until Discontinu ed, Routine ibuprofen 2019-09 Yes 600mg 600 mg, Univ ers (IBU) 2-09 Oral, Q6H, ity of tablet 600 12:00: First dose [place] mg 00 on Sun Medical 08/11/20 at Branch 0600, Until Discontinu ed, Routine rho(D) 2019-09 Yes 300ug 300 mcg, Univer s immune 2-09 Intramuscu ity of globulin 09:37: lar, ONCE, [place] (RHOGAM) 31 For 1 Medical syringe 300 dose, Branch mcg Conditiona l, Routine oxyCODONE 2019-09 Yes 10mg 10 mg, Univer s immediate 2-09 Oral, ity of release 09:36: Q6HPRN, [place] tablet 10 02 Starting Medica l mg Wed Branch 08/11/20 at 0336, Until Discontinu ed, Routine, Pain (scale 7-10)
F aculty member approving Restricted medication : KEISHA GIBSON oxyCODONE 2019-09 Yes 5mg 5 mg, Univers immediate 2-09 Oral, ity of release 09:35: Q6HPRN, [place] tablet 5 mg 36 Starting Medi erum Wed Branch 08/11/20 at 0335, Until Discontinu ed, Routine, Pain (scale 4-6)
Fa culty member approving Restricted medication : KEISHA GIBSON diphenhydrA 2019-09 Yes 25mg 25 mg, IV U nivers MINE-0.9 % 209 Piggyback, ity of sod.chlr 09:33: Administer [place] (BENADRYL) 01 over 30 Medica l 25 mg/50 mL Minutes, Bran ch piggyback Q6HPRN, 1 25 mg dose, Starting 08/11/20 at 0333, Until Discontinu ed, Routine, Itching diphenhydrA 2019-09 Yes 25mg 25 mg, Univ ers MINE 2-09 Oral, ity of (BENADRYL) 09:33: Q6HPRN, [place] tablet 25 01 Starting Medica l mg Wed Branch 08/11/20 at 0333, Until Discontinu ed, Routine, Sleep, Itching ondansetron 2019-09 Yes 4mg 4 mg, Slow Univers (ZOFRAN 2 IV Push, ity of (PF)) 09:33: Q8HPRN, [place] injection 4 01 Starting Medi erum mg Wed Branch 08/11/20 at 0333, Until Discontinu ed, Routine, Nausea and Vomiting (N/V) bisacodyL 2019-09 Yes 10mg 10 mg, Univer s (DULCOLAX) 2-09 Rectal, ity of suppository 09:33: QDAILYPRN, [place] 10 mg 01 Starting Medical Wed Branch 08/11/20 at 0333, Until Discontinu ed, Routine, Constipati on simethicone 2019-09 Yes 160mg 160 mg, Un ron (GAS RELIEF 2-09 Oral, ity of (SIMETHICON 09:33: PC+HSPRN, [place] E)) 01 Starting Medical chewable [facility] Branch tablet 160 08/11/20 at mg 0333, Until Discontinu ed, Routine, Gas docusate 2019-09 Yes 240mg 240 mg, Unive rs calcium 2-09 Oral, ity of (SURFAK) 09:33: QDAILYPRN, [place] capsule 240 01 Starting Medi erum mg [facility] Branch 08/11/20 at 0333, Until Discontinu ed, Routine, Constipati on magnesium 2019-09 Yes 30mL 30 mL, Univer s hydroxide 2-09 Oral, ity of (MILK OF 09:33: QDAILYPRN, [place] MAGNESIA) 01 Starting Medica l 400 mg/5 mL [facility] Branch suspension 08/11/20 at 30 mL 0333, Until Discontinu ed, Routine, Constipati on naloxone 2019-09 2020- No .4mg 0.4 mg, Unive rs (NARCAN) 10-12-12 Slow IV ity of injection 08:47: 00:14 Push, PRN [place] 0.4 mg 27 :19 - SEE Medical INSTRUCTIO Branch NS, Starting Sun08/11/20 at 0247, Until Sun08/13/20 at 1814, Routine, Analgesia Recovery nalbuphine 2019-09 Yes 5mg 5 mg, Univer s (NUBAIN) 2 Intravenou ity o f injection 5 08:47: s, PRN, 1 [place] mg 26 dose, Medical Starting Branch Sun08/11/20 at 0247, Until Discontinu ed, Routine, Itching lactated 2019-09 2020- No 500mL at 999 Unive rs ringers IV 10-12 12-09 mL/hr, 500 it y of infusion 08:45: 07:46 mL, IV [place] 500 mL 00 :00 Infusion, Medical ONCE, 1 Branch dose, Sun08/11/20 at 0245, Routine lactated 2019-09 Yes 1000mL at 125 Unive rs ringers IV 2-09 mL/hr, ity of infusion 07:45: 1,000 mL, [place] 1,000 mL 00 IV Medical Infusion, Branch CONTINUOUS , Starting Sun08/11/20 at 0145, Until Discontinu ed, Routine ceFAZolin 2019-09- No 2000mg 2 g (2,000 Univers in dextrose 10-12 mg), IV ity of (iso-os) 07:42: 07:45 Piggyback, [place] (ANCEF) 2 07 :00 O.R. Medical gram/100 mL HOLDING Branc h Piggyback 2 ONCE, 1 g dose, Starting Sun08/11/20 at 0142, Until Sun08/11/20 at 0145, 100 mL
Reas on for Anti-Infec tive: Surgical Prophylaxi s
Surgi erum Prophylaxi s: SHROUDMAN
Duration of therapy: within 24 hours of surgery sodium 2019-09- No 30mL 30 mL, Univers citrate-cit 10-12 Oral, ity of eufemia acid 07:42: 07:46 PRE-PROCED [place] (BICITRA) 06 :00 URE ONCE, Medic al 500-334 1 dose, Branch mg/5 mL Starting solution 30 Wed mL 08/11/20 at 0142, Until Sun08/11/20 at 0146, Routine, Surgery [id number] IV 2019-09 Yes 1000mL at 125 Univ ers infusion 2-09 mL/hr, IV ity of 1,000 mL 05:00: Infusion, [place] 00 CONTINUOUS Medical , Starting Branch Sun08/10/20 at 2300, Until Discontinu ed, Routine lactated 2019-09 Yes 500mL at 999 Univer s ringers IV 2-09 mL/hr, 500 ity of infusion 04:43: mL, IV [place] 500 mL 57 Infusion, Medical PRN - SEE Branch INSTRUCTIO NS, Starting Sun08/10/20 at 2243, Until Discontinu ed, Routine 2019-09 Yes Take by Unive rs 25/iron 1-08 mouth. ity of fum/folic/d 06:28: [place] [address] Medical (-1 Branch ORAL) 2019-09 Yes Take by Unive rs 25/iron 1-08 mouth. ity of fum/folic/d 06:28: [place] [address] Medical (-1 Branch ORAL) 2020 Yes Take by Unive rs 25/iron 1-08 mouth. ity of fum/folic/d 06:28: [place] [address] Medical (-1 Branch ORAL) 2019-09 Yes Take by Unive rs 25/iron 1-08 mouth. ity of fum/folic/d 06:28: [facility] 44 Medical (-1 Branch ORAL) 2019-09 Yes Take by Unive rs 25/iron 1-08 mouth. ity of fum/folic/d 06:28: [facility] 44 Medical (-1 Branch ORAL) acetaminoph 2019-09 Yes 650mg 650 mg, Un ron en -08 Oral, ity of (TYLENOL) 05:19: Q6HPRN, [place] tablet 650 56 Starting Medic al mg Sat Branch 07/10/20 at 2319, Until Discontinu ed, Routine, Pain (scale 1-3), Pain (scale 4-6) ferrous 2019-09 Yes [id number] 325mg Take 1 Un ron sulfate 0-27 tablet by ity of (IRON, 00:00: mouth [place] FERROUS 00 daily. Medical SULFATE,) Branch 325 mg (65 mg iron) tablet ferrous 2019-09 Yes [id number] 325mg Take 1 Un ron sulfate 0-27 tablet by ity of (IRON, 00:00: mouth [place] FERROUS 00 daily. Medical SULFATE,) Branch 325 mg (65 mg iron) tablet ferrous 2019-09 Yes [id number] 325mg Take 1 Un ron sulfate 0-27 tablet by ity of (IRON, 00:00: mouth [place] FERROUS 00 daily. Medical SULFATE,) Branch 325 mg (65 mg iron) tablet ferrous 2019-09 Yes [id number] 325mg Take 1 Un ron sulfate 0-27 tablet by ity of (IRON, 00:00: mouth [place] FERROUS 00 daily. Medical SULFATE,) Branch 325 mg (65 mg iron) tablet ferrous 2019-09 Yes [id number] 325mg Take 1 Un ron sulfate 0-27 tablet by ity of (IRON, 00:00: mouth [place] FERROUS 00 daily. Medical SULFATE,) Branch 325 mg (65 mg iron) tablet ferrous 2019-09 Yes [id number] 325mg Take 1 Un ron sulfate 0-27 tablet by ity of (IRON, 00:00: mouth [place] FERROUS 00 daily. Medical SULFATE,) Branch 325 mg (65 mg iron) tablet ferrous 2019-09 Yes [id number] 325mg Take 1 Un ron sulfate 0-27 tablet by ity of (IRON, 00:00: mouth [place] FERROUS 00 daily. Medical SULFATE,) Branch 325 mg (65 mg iron) tablet ferrous 2020- Yes [id number] 325mg Take 1 Un ron sulfate 0-27 tablet by ity of (IRON, 00:00: mouth [place] FERROUS 00 daily. Medical SULFATE,) Branch 325 mg (65 mg iron) tablet ferrous 2020- Yes [id number] 325mg Take 1 Un ron sulfate 0-27 tablet by ity of (IRON, 00:00: mouth [place] FERROUS 00 daily. Medical SULFATE,) Branch 325 mg (65 mg iron) tablet ferrous 2019-09 2020- No [id number] 325mg Take 1 U nivers sulfate 0-27 12-10 tablet by ity of (IRON, 00:00: 00:00 mouth [place] FERROUS 00 :00 daily. Medical SULFATE,) Branch 325 mg (65 mg iron) tablet 2020-0 Yes Take by Unive rs 25/iron 5-13 mouth. ity of fum/folic/d 20:48: [place] [address] Medical (-1 Branch ORAL) 2020-0 Yes Take by Unive rs 25/iron 5-13 mouth. ity of fum/folic/d 20:48: [place] [address] Medical (-1 Branch ORAL) 2020-0 Yes Take by Unive rs 25/iron 5-13 mouth. ity of fum/folic/d 20:48: [place] [address] Medical (-1 Branch ORAL) 2020-0 Yes Take by Unive rs 25/iron 5-13 mouth. ity of fum/folic/d 20:48: [place] [address] Medical (-1 Branch ORAL) 2020-0 Yes Take by Unive rs 25/iron 5-13 mouth. ity of fum/folic/d 20:48: [place] [address] Medical (-1 Branch ORAL) 2020-0 Yes Take by Unive rs 25/iron 5-13 mouth. ity of fum/folic/d 20:48: [place] [address] Medical (-1 Branch ORAL) 2020-0 Yes Take by Unive rs 25/iron 5-13 mouth. ity of fum/folic/d 20:48: [place] [address] Medical (-1 Branch ORAL) 2020-0 Yes Take by Unive rs 25/iron 5-13 mouth. ity of fum/folic/d 20:48: [place] [address] Medical (-1 Branch ORAL) 2020-0 Yes Take by Unive rs 25/iron 5-13 mouth. ity of fum/folic/d 20:48: [place] [address] Medical (-1 Branch ORAL) 2020-0 Yes Take by Unive rs 25/iron 5-13 mouth. ity of fum/folic/d 20:48: [place] [address] Medical (-1 Branch ORAL) 2020-0 Yes Take by Unive rs 25/iron 5-13 mouth. ity of fum/folic/d 20:48: [place] [address] Medical (-1 Branch ORAL) 2020-0 Yes Take by Unive rs 25/iron 5-13 mouth. ity of fum/folic/d 20:48: [place] [address] Medical (-1 Branch ORAL) 2020-0 Yes Take by Unive rs 25/iron 5-13 mouth. ity of fum/folic/d 20:48: [place] [address] Medical (-1 Branch ORAL) 2020-0 Yes Take by Unive rs 25/iron 5-13 mouth. ity of fum/folic/d 20:48: [place] [address] Medical (-1 Branch ORAL) 2020-0 Yes Take by Unive rs 25/iron 5-13 mouth. ity of fum/folic/d 20:48: [place] [address] Medical (-1 Branch ORAL) 2020-0 Yes Take by Unive rs 25/iron 5-13 mouth. ity of fum/folic/d 20:48: [place] [address] Medical (-1 Branch ORAL) 2020-0 Yes Take by Unive rs 25/iron 5-13 mouth. ity of fum/folic/d 20:48: [place] [address] Medical (-1 Branch ORAL) 2020-0 Yes Take by Unive rs 25/iron 5-13 mouth. ity of fum/folic/d 20:48: [place] [address] Medical (-1 Branch ORAL) 2020-0 Yes Take by Unive rs 25/iron 5-13 mouth. ity of fum/folic/d 20:48: [place] [address] Medical (-1 Branch ORAL) 2020-0 Yes Take by Unive rs 25/iron 5-13 mouth. ity of fum/folic/d 20:48: [place] [address] Medical (-1 Branch ORAL) 2020-0 Yes Take by Unive rs 25/iron 5-13 mouth. ity of fum/folic/d 20:48: [place] [address] Medical (-1 Branch ORAL) 2020-0 Yes Take by Unive rs 25/iron 5-13 mouth. ity of fum/folic/d 20:48: [place] [address] Medical (-1 Branch ORAL) 2020-0 Yes Take by Unive rs 25/iron 5-13 mouth. ity of fum/folic/d 20:48: [place] [address] Medical (-1 Branch ORAL) 2020-0 Yes Take by Unive rs 25/iron 5-13 mouth. ity of fum/folic/d 20:48: [place] [address] Medical (-1 Branch ORAL) 2020-0 Yes Take by Unive rs 25/iron 5-13 mouth. ity of fum/folic/d 20:48: [place] [address] Medical (-1 Branch ORAL) 2020-0 Yes Take by Unive rs 25/iron 5-13 mouth. ity of fum/folic/d 20:48: [place] [address] Medical (-1 Branch ORAL) 2020-0 Yes Take by Unive rs 25/iron 5-13 mouth. ity of fum/folic/d 20:48: [place] [address] Medical (-1 Branch ORAL) 2020-0 Yes Take by Unive rs 25/iron 5-13 mouth. ity of fum/folic/d 20:48: [place] [address] Medical (-1 Branch ORAL) 2020-0 Yes Take by Unive rs 25/iron 5-13 mouth. ity of fum/folic/d 20:48: [place] [address] Medical (-1 Branch ORAL) 2020-0 Yes Take by Unive rs 25/iron 5-13 mouth. ity of fum/folic/d 20:48: [place] [address] Medical (-1 Branch ORAL) 2018-0 Yes 1{tbl} Take 1 Unive rs vitamin 9-12 tablet by ity of w/FA tablet 00:00: mouth [place] 00 daily. Medical Branch 2018-0 2020- No 1{tbl} Take 1 Univ ers vitamin 9-12 05-13 tablet by ity [place] w/FA tablet [place]. [place] [facility] PNV Combo 2018-0 Yes [id number] Take 1 Un ron No.47-Iron- 2-13 TAB-CAP/M2 it y of FA #1-DHA [place] (PNV[place] 00 daily. Medical 27 mg Branch iron-1 mg -300 mg Cap PNV Combo 2017-0 2020- No [id number] Take 1 U nivers No.47-Iron- 2-13 05-13 TAB-CAP/M2 i ty of FA #1-DHA 00:00: 00:00 by mouth [place] (PNV-DHA) 00 :00 daily. Medical 27 mg Branch iron-1 mg -300 mg Cap Immunizations Ordered Filled Immunization Date Status Comments [facility] e Immunization Name Name SARS-COV-2 COVID-19 2021-02-15 Completed Unive rsity of PFIZER VACCINE 00:00:00 [facility] SARS-COV-2 COVID-19 2021-02-15 Completed Unive rsity of PFIZER VACCINE 00:00:00 [facility] SARS-COV-2 COVID-19 2021-02-15 Completed Unive rsity of PFIZER VACCINE 00:00:00 [facility] SARS-COV-2 COVID-19 2021-02-15 Completed Unive rsity of PFIZER VACCINE 00:00:00 [facility] SARS-COV-2 COVID-19 2021-02-15 Completed Unive rsity of PFIZER VACCINE 00:00:00 [facility] SARS-COV-2 COVID-19 2021-02-15 Completed Unive rsity of PFIZER VACCINE 00:00:00 [facility] SARS-COV-2 COVID-19 2021-02-15 Completed Unive rsity of PFIZER VACCINE 00:00:00 [facility] SARS-COV-2 COVID-19 2021-02-15 Completed Unive rsity of PFIZER VACCINE 00:00:00 [facility] SARS-COV-2 COVID-19 2021-02-15 Completed Unive rsity of PFIZER VACCINE 00:00:00 [facility] SARS-COV-2 COVID-19 2021-02-15 Completed Unive rsity of PFIZER VACCINE 00:00:00 [facility] SARS-COV-2 COVID-19 2021-02-15 Completed Unive rsity of PFIZER VACCINE 00:00:00 [facility] Influenza Virus 2020-06-10 Completed Universit y of Vaccine Quad .5 mL 00:00:00 [facility] IM 6+ MO Branch TDAP 2020-06-10 Completed University of 00:00:00 [facility] Influenza Virus 2020-06-10 Completed Universit y of Vaccine Quad .5 mL 00:00:00 [facility] IM 6+ MO Branch TDAP 2020-06-10 Completed University of 00:00:00 [facility] Influenza Virus 2020-06-10 Completed Universit y of Vaccine Quad .5 mL 00:00:00 [facility] IM 6+ MO Branch TDAP 2020-06-10 Completed University of 00:00:00 [facility] Influenza Virus 2020-06-10 Completed Universit y of Vaccine Quad .5 mL 00:00:00 [facility] 6+ MO Branch TDAP 2020-06-10 Completed University of 00:00:00 [facility] Influenza Virus 2020-06-10 Completed Universit y of Vaccine Quad .5 mL 00:00:00 [facility] 6+ MO Branch TDAP 2020-06-10 Completed University of 00:00:00 [facility] Influenza Virus 2020-06-10 Completed Universit y of Vaccine Quad .5 mL 00:00:00 [facility] 6+ MO Branch TDAP 2020-06-10 Completed University of 00:00:00 [facility] Influenza Virus 2020-06-10 Completed Universit y of Vaccine Quad .5 mL 00:00:00 [facility] 6+ MO Branch TDAP 2020-06-10 Completed University of 00:00:00 [facility] Influenza Virus 2020-06-10 Completed Universit y of Vaccine Quad .5 mL 00:00:00 [facility] 6+ MO Branch TDAP 2020-06-10 Completed University of 00:00:00 [facility] Influenza Virus 2020-06-10 Completed Universit y of Vaccine Quad .5 mL 00:00:00 [facility] 6+ MO Branch TDAP 2020-06-10 Completed University of 00:00:00 [facility] Influenza Virus 2020-06-10 Completed Universit y of Vaccine Quad .5 mL 00:00:00 [facility] 6+ MO Branch TDAP 2020-06-10 Completed University of 00:00:00 [facility] Influenza Virus 2020-06-10 Completed Universit y of Vaccine Quad .5 mL 00:00:00 [place] [facility] IM 6+ MO Branch TDAP 2020-06-10 Completed University of 00:00:00 [place] [facility] [place] Influenza Virus 2020-06-10 Completed Universit y of Vaccine Quad .5 mL 00:00:00 [place] [facility] 6+ MO Branch TDAP 2020-06-10 Completed University of 00:00:00 [place] [facility] [place] Influenza Virus 2020-06-10 Completed Universit y of Vaccine Quad .5 mL 00:00:00 [place] [facility] 6+ MO Branch TDAP 2020-06-10 Completed University of 00:00:00 [place] [facility] [place] Influenza Virus 2020-06-10 Completed Universit y of Vaccine Quad .5 mL 00:00:00 [place] [facility] 6+ MO Branch TDAP 2020-06-10 Completed University of 00:00:00 [facility] Influenza Virus 2020-06-10 Completed Universit y of Vaccine Quad .5 mL 00:00:00 [place] [facility] 6+ MO Branch TDAP 2020-06-10 Completed University of 00:00:00 [facility] Influenza Virus 2020-06-10 Completed Universit y of Vaccine Quad .5 mL 00:00:00 [facility] 6+ MO Branch TDAP 2020-06-10 Completed University of 00:00:00 [facility] Influenza Virus 2020-06-10 Completed Universit y of Vaccine Quad .5 mL 00:00:00 [place] [facility] 6+ MO Branch TDAP 2020-06-10 Completed University of 00:00:00 [facility] Influenza Virus 2020-06-10 Completed Universit y of Vaccine Quad .5 mL 00:00:00 [place] [facility] 6+ MO Branch TDAP 2020-06-10 Completed University of 00:00:00 [facility] Influenza Virus 2020-06-10 Completed Universit y of Vaccine Quad .5 mL 00:00:00 [place] [facility] 6+ MO Branch TDAP 2020-06-10 Completed University of 00:00:00 [facility] Influenza Virus 2020-06-10 Completed Universit y of Vaccine Quad .5 mL 00:00:00 [place] [facility] 6+ MO Branch TDAP 2020-06-10 Completed University of 00:00:00 [facility] Influenza Virus 2020-06-10 Completed Universit y of Vaccine Quad .5 mL 00:00:00 [place] [facility] 6+ MO Branch TDAP 2020-06-10 Completed University of 00:00:00 [facility] Influenza Virus 2020-06-10 Completed Universit y of Vaccine Quad .5 mL 00:00:00 [place] [facility] IM 6+ MO Branch TDAP 2020-06-10 Completed University of 00:00:00 [place] [facility] Influenza Virus 2020-06-10 Completed Universit y of Vaccine Quad .5 mL 00:00:00 [place] [facility] IM 6+ MO Branch TDAP 2020-06-10 Completed University of 00:00:00 [place] [facility] [place] Influenza Virus 2020-06-10 Completed Universit y of Vaccine Quad .5 mL 00:00:00 [place] [facility] IM 6+ MO Branch TDAP 2020-06-10 Completed University of 00:00:00 [place] [facility] Influenza Virus 2020-06-10 Completed Universit y of Vaccine Quad .5 mL 00:00:00 [place] [facility] IM 6+ MO Branch TDAP 2020-06-10 Completed University of 00:00:00 [facility] Influenza Virus 2020-06-10 Completed Universit y of Vaccine Quad .5 mL 00:00:00 [place] [facility] IM 6+ MO Branch TDAP 2020-06-10 Completed University of 00:00:00 [place] [facility] [place] Influenza Virus 2020-06-10 Completed Universit y of Vaccine Quad .5 mL 00:00:00 [place] [facility] 6+ MO Branch TDAP 2020-06-10 Completed University of 00:00:00 [place] [facility] [place] Influenza Virus 2020-06-10 Completed Universit y of Vaccine Quad .5 mL 00:00:00 [place] [facility] 6+ MO Branch TDAP 2020-06-10 Completed [facility] of 00:00:00 [facility] Influenza Virus 2020-06-10 Completed Universit y of Vaccine Quad .5 mL 00:00:00 [place] [facility] IM 6+ MO Branch TDAP 2020-06-10 Completed University of 00:00:00 [place] [facility] [place] Influenza Virus 2020-06-10 Completed Universit y of Vaccine Quad .5 mL 00:00:00 [place] [facility] IM 6+ MO Branch TDAP 2020-06-10 Completed University of 00:00:00 [place] [facility] Influenza Virus 2020-06-10 Completed Universit y of Vaccine Quad .5 mL 00:00:00 [place] [facility] IM 6+ MO Branch TDAP 2020-06-10 Completed [facility] of 00:00:00 [facility] Influenza Virus 2020-06-10 Completed Universit y of Vaccine Quad .5 mL 00:00:00 [place] [facility] IM 6+ MO Branch TDAP 2020-06-10 Completed University of 00:00:00 [facility] Influenza Virus 2020-06-10 Completed Universit y of Vaccine Quad .5 mL 00:00:00 [place] [facility] IM 6+ MO Branch TDAP 2020-06-10 Completed University of 00:00:00 [place] [facility] [place] Influenza Virus 2020-06-10 Completed Universit y of Vaccine Quad .5 mL 00:00:00 [place] [facility] IM 6+ MO Branch TDAP 2020-06-10 Completed University of 00:00:00 [place] [facility] [place] Influenza Virus 2020-06-10 Completed Universit y of Vaccine Quad .5 mL 00:00:00 [place] [facility] IM 6+ MO Branch TDAP 2020-06-10 Completed [facility] of 00:00:00 [facility] Influenza Virus 2020-06-10 Completed Universit y of Vaccine Quad .5 mL 00:00:00 [place] [facility] 6+ MO Branch TDAP 2020-06-10 Completed University of 00:00:00 [facility] Influenza Virus 2020-06-10 Completed Universit y of Vaccine Quad .5 mL 00:00:00 [place] [facility] 6+ MO Branch TDAP 2020-06-10 Completed [facility] of 00:00:00 [facility] Influenza Virus 2020-06-10 Completed Universit y of Vaccine Quad .5 mL 00:00:00 [place] [facility] 6+ MO Branch TDAP 2020-06-10 Completed [facility] of 00:00:00 [facility] Influenza Virus 2020-06-10 Completed Universit y of Vaccine Quad .5 mL 00:00:00 [place] [facility] 6+ MO Branch TDAP 2020-06-10 Completed [facility] of 00:00:00 [facility] Influenza Virus 2020-06-10 Completed Universit y of Vaccine Quad .5 mL 00:00:00 [place] [facility] IM 6+ MO Branch TDAP 2020-06-10 Completed [facility] of 00:00:00 [facility] Influenza Virus 2020-06-10 Completed Universit y of Vaccine Quad .5 mL 00:00:00 [place] [facility] IM 6+ MO Branch TDAP 2020-06-10 Completed [facility] of 00:00:00 [facility] TDAP 2018-03-22 Completed University of 00:00:00 [facility] TDAP 2018-03-22 Completed University of 00[facility]00:00 [facility] TDAP 2018-03-22 Completed University of 00[facility]00:00 [facility] TDAP 2018-03-22 Completed University of 00:00:00 [facility] TDAP 2018-03-22 Completed University of 00:00:00 [place] [facility] Tdap 2018-03-22 Completed University of 00:00:00 [place] [facility] Tdap 2018-03-22 Completed University of 00:00:00 [place] [facility] Tdap 2018-03-22 Completed University of 00:00:00 [facility] Branch Tdap 2018-03-22 Completed University of 00:00:00 [facility] Branch Tdap 2018-03-22 Completed University of 00:00:00 [place] [facility] Tdap 2018-03-22 Completed University of 00:00:00 [place] [facility] Tdap 2018-03-22 Completed University of 00:00:00 [place] [facility] TDAP 2018-03-22 Completed University of 00:00:00 [place] [facility] TDAP 2018-03-22 Completed University of 00:00:00 [facility] Branch TDAP 2018-03-22 Completed University of 00:00:00 [facility] Branch TDAP 2018-03-22 Completed University of 00:00:00 [facility] Branch TDAP 2018-03-22 Completed University of 00:00:00 [facility] Branch TDAP 2018-03-22 Completed University of 00:00:00 [facility] Branch TDAP 2018-03-22 Completed University of 00:00:00 [facility] Branch TDAP 2018-03-22 Completed University of 00:00:00 [facility] Branch TDAP 2018-03-22 Completed University of 00:00:00 [facility] Branch TDAP 2018-03-22 Completed University of 00:00:00 [facility] Branch TDAP 2018-03-22 Completed University of 00:00:00 [facility] Branch TDAP 2018-03-22 Completed University of 00:00:00 [facility] Branch TDAP 2018-03-22 Completed University of 00:00:00 [facility] Branch TDAP 2018-03-22 Completed University of 00:00:00 [facility] Branch TDAP 2018-03-22 Completed University of 00:00:00 [facility] Branch TDAP 2018-03-22 Completed University of 00:00:00 [facility] Branch TDAP 2018-03-22 Completed University of 00:00:00 [facility] Branch TDAP 2018-03-22 Completed University of 00:00:00 [facility] Branch TDAP 2018-03-22 Completed University of 00:00:00 [facility] Branch TDAP 2018-03-22 Completed University of 00:00:00 [place] [facility] TDAP 2018-03-22 Completed University of 00:00:00 [place] [facility] TDAP 2018-03-22 Completed University of 00:00:00 [place] [facility] TDAP 2018-03-22 Completed University of 00:00:00 [place] [facility] TDAP 2018-03-22 Completed University of 00:00:00 [place] [facility] TDAP 2018-03-22 Completed University of 00:00:00 [place] [facility] TDAP 2018-03-22 Completed University of 00:00:00 [place] [facility] TDAP 2018-03-22 Completed University of 00:00:00 [place] [facility] TDAP 2018-03-22 Completed University of 00:00:00 [place] [facility] TDAP 2018-03-22 Completed University of 00:00:00 [place] [facility] TDAP 2018-03-22 Completed University of 00:00:00 [place] [facility] TDAP 2018-03-22 Completed University of 00:00:00 [facility] Branch TDAP 2018-03-22 Completed University of 00:00:00 [facility] Branch TDAP 2018-03-22 Completed University of 00:00:00 [place] [facility] TDAP 2018-03-22 Completed University of 00:00:00 [facility] Branch TDAP 2018-03-22 Completed University of 00:00:00 [place] [facility] TDAP 2018-03-22 Completed University of 00:00:00 [place] [facility] TDAP 2018-03-22 Completed University of 00:00:00 [facility] Branch TDAP 2018-03-22 Completed University of 00:00:00 [facility] Branch TDAP 2018-03-22 Completed University of 00:00:00 [place] [facility] TDAP 2018-03-22 Completed University of 00:00:00 [place] [facility] TDAP 2018-03-22 Completed University of 00:00:00 [place] [facility] TDAP 2018-03-22 Completed University of 00:00:00 [place] [facility] TDAP 2018-03-22 Completed University of 00:00:00 [place] [facility] TDAP 2018-03-22 Completed University of 00:00:00 [place] [facility] TDAP 2018-03-22 Completed University of 00:00:00 [facility] Branch TDAP 2018-03-22 Completed University of 00:00:00 [place] [facility] TDAP 2018-03-22 Completed University of 00:00:00 [place] [facility] TDAP 2018-03-22 Completed [facility] of 00:00:00 [facility] TDAP 2018-03-22 Completed [facility] of 00:00:00 [facility] Influenza Virus 2017-10-16 Completed Universit y of Vaccine Quad IM 3+ 00:00:00 [facility] Influenza Virus 2017-10-16 Completed Universit y of Vaccine Quad IM 3+ 00:00:00 [facility] Influenza Virus 2017-10-16 Completed Universit y of Vaccine Quad IM 3+ 00:00:00 [facility] Influenza Virus 2017-10-16 Completed Universit y of Vaccine Quad IM 3+ 00:00:00 [facility] Influenza Virus 2017-10-16 Completed Universit y of Vaccine Quad IM 3+ 00:00:00 [facility] Influenza Virus 2017-10-16 Completed Universit y of Vaccine Quad IM 3+ 00:00:00 [facility] Influenza Virus 2017-10-16 Completed Universit y of Vaccine Quad IM 3+ 00:00:00 [facility] Influenza Virus 2017-10-16 Completed Universit y of Vaccine Quad IM 3+ 00:00:00 [facility] Influenza Virus 2017-10-16 Completed Universit y of Vaccine Quad IM 3+ 00:00:00 [facility] Influenza Virus 2017-10-16 Completed Universit y of Vaccine Quad IM 3+ 00:00:00 [facility] Influenza Virus 2017-10-16 Completed Universit y of Vaccine Quad IM 3+ 00:00:00 [facility] Influenza Virus 2017-10-16 Completed Universit y of Vaccine Quad IM 3+ 00:00:00 [facility] Influenza Virus 2017-10-16 Completed Universit y of Vaccine Quad IM 3+ 00:00:00 [facility] Influenza Virus 2017-10-16 Completed Universit y of Vaccine Quad IM 3+ 00:00:00 [facility] Influenza Virus 2017-10-16 Completed Universit y of Vaccine Quad IM 3+ 00:00:00 [facility] Influenza Virus 2017-10-16 Completed Universit y of Vaccine Quad IM 3+ 00:00:00 [facility] Influenza Virus 2017-10-16 Completed Universit y of Vaccine Quad IM 3+ 00:00:00 [facility] Influenza Virus 2017-10-16 Completed Universit y of Vaccine Quad IM 3+ 00:00:00 [facility] Influenza Virus 2017-10-16 Completed Universit y of Vaccine Quad IM 3+ 00:00:00 [facility] Influenza Virus 2017-10-16 Completed Universit y of Vaccine Quad IM 3+ 00:00:00 [facility] Influenza Virus 2017-10-16 Completed Universit y of Vaccine Quad IM 3+ 00:00:00 [facility] Influenza Virus 2017-10-16 Completed Universit y of Vaccine Quad IM 3+ 00:00:00 [facility] Influenza Virus 2017-10-16 Completed Universit y of Vaccine Quad IM 3+ 00:00:00 [facility] Influenza Virus 2017-10-16 Completed Universit y of Vaccine Quad IM 3+ 00:00:00 [facility] Influenza Virus 2017-10-16 Completed Universit y of Vaccine Quad IM 3+ 00:00:00 [facility] Influenza Virus 2017-10-16 Completed Universit y of Vaccine Quad IM 3+ 00:00:00 [facility] Influenza Virus 2017-10-16 Completed Universit y of Vaccine Quad IM 3+ 00:00:00 [facility] Influenza Virus 2017-10-16 Completed Universit y of Vaccine Quad IM 3+ 00:00:00 [facility] Influenza Virus 2017-10-16 Completed Universit y of Vaccine Quad IM 3+ 00:00:00 [facility] Influenza Virus 2017-10-16 Completed Universit y of Vaccine Quad IM 3+ 00:00:00 [facility] Influenza Virus 2017-10-16 Completed Universit y of Vaccine Quad IM 3+ 00:00:00 [facility] Influenza Virus 2017-10-16 Completed Universit y of Vaccine Quad IM 3+ 00:00:00 [facility] Influenza Virus 2017-10-16 Completed Universit y of Vaccine Quad IM 3+ 00:00:00 [facility] Influenza Virus 2017-10-16 Completed Universit y of Vaccine Quad IM 3+ 00:00:00 [facility] Influenza Virus 2017-10-16 Completed Universit y of Vaccine Quad IM 3+ 00:00:00 [facility] Influenza Virus 2017-10-16 Completed Universit y of Vaccine Quad IM 3+ 00:00:00 [facility] Influenza Virus 2017-10-16 Completed Universit y of Vaccine Quad IM 3+ 00:00:00 [facility] Influenza Virus 2017-10-16 Completed Universit y of Vaccine Quad IM 3+ 00:00:00 [facility] Influenza Virus 2017-10-16 Completed [facility] 3+ 00:00:00 [facility] Influenza Virus 2017-10-16 Completed [facility] IM 3+ 00:00:00 [facility] Influenza Virus 2017-10-16 Completed [facility] IM 3+ 00:00:00 [facility] Influenza Virus 2017-10-16 Completed [facility] IM 3+ 00:00:00 [facility] Influenza Virus 2017-10-16 Completed [facility] IM 3+ 00:00:00 [facility] Influenza Virus 2017-10-16 Completed [facility] IM 3+ 00:00:00 [facility] Influenza Virus 2017-10-16 Completed [facility] IM 3+ 00:00:00 [facility] Influenza Virus 2017-10-16 Completed [facility] IM 3+ 00:00:00 [facility] Influenza Virus 2017-10-16 Completed [facility] IM 3+ 00:00:00 [facility] Influenza Virus 2017-10-16 Completed [facility] IM 3+ 00:00:00 [facility] Influenza Virus 2017-10-16 Completed [facility] IM 3+ 00:00:00 [facility] Influenza Virus 2017-10-16 Completed [facility] IM 3+ 00:00:00 [facility] Influenza Virus 2017-10-16 Completed [facility]it [facility] of [facility] IM 3+ 00:00:00 [facility] Influenza Virus 2017-10-16 Completed [facility] IM 3+ 00:00:00 [facility] Influenza Virus 2017-10-16 Completed [facility] IM 3+ 00:00:00 [facility] Influenza Virus 2017-10-16 Completed [facility] IM 3+ 00:00:00 [facility] Influenza Virus 2017-10-16 Completed [facility] IM 3+ 00:00:00 [facility] Influenza Virus 2017-10-16 Completed [facility] IM 3+ 00:00:00 [facility] Influenza Virus 2017-10-16 Completed [facility] of [facility] IM 3+ 00:00:00 [facility] Influenza Virus 2017-10-16 Completed [facility]it y of [facility] IM 3+ 00:00:00 [facility] Influenza Virus 2017-10-16 Completed [facility] of [facility] IM 3+ 00:00:00 [facility] Influenza Virus 2017-10-16 Completed [facility] IM 3+ 00:00:00 [facility] Influenza Virus 2017-10-16 Completed [facility] IM 3+ 00:00:00 [facility] Vital Signs Vital Name Observation Time Observation Value Comments Source Systolic blood 2021-08-25 23:27:00 140 mm[Hg] Univer sity of pressure [facility] Diastolic blood 2021-08-25 23:27:00 81 mm[Hg] Unive rsity of pressure [facility] Heart rate 2021-08-25 23:27:00 74 /min Universi ty of [facility] Body temperature 2021-08-25 23:27:00 36.83 Joanne [facility] ersity of [facility] Respiratory rate 2021-08-25 23:27:00 18 /min Univ ersity of [facility] Body height 2021-08-25 23:27:00 172.[address] [facility] Body weight 2021-08-25 23:27:00 58[address] [facility] BMI 2021-08-25 23:27:00 19.51 kg/m2 Universi ty [facility] Oxygen saturation in 2021-08-25 23:27:00 98 /min University of Arterial blood by [facility] Pulse oximetry Branch Systolic blood 2021-07-27 03:00:00 130 mm[Hg] Univer sity of pressure [facility] Diastolic blood 2021-07-27 03:00:00 89 mm[Hg] Unive rsity of pressure [facility] Heart rate 2021-07-27 03:00:00 87 /min Universi ty of [facility] Body temperature 2021-07-27 03:00:00 37.22 Joanne [address] of [facility] Respiratory rate 2021-07-27 03:00:00 18 /min Univ ersity of [facility] Oxygen saturation in 2021-07-27 03:00:00 99 /min University of Arterial blood by [facility] Pulse oximetry Branch Body height 2021-07-27 01:28:00 172.7 cm [facility] Body weight 2021-07-27 01:28:00 54.885 kg [facility] BMI 2021-07-27 01:28:00 18.40 kg/m2 [facility] Body temperature 2021-05-11 20:20:00 35.83 Joanne Univ [facility] Body weight 2021-05-11 20:20:00 63.504 kg [facility] BMI 2021-05-11 20:20:00 21.29 kg/m2 [facility] Systolic blood 2021-04-13 21:18:00 160 mm[Hg] Univer sity of pressure [facility] Diastolic blood 2021-04-13 21:18:00 100 mm[Hg] Unive rsity of pressure [facility] Heart rate 2021-04-13 21:15:00 98 /min [facility] Body temperature 2021-04-13 21:15:00 37.06 Joanne Univ [facility] Body height 2021-04-13 21:15:00 172.7 cm [facility] Body weight 2021-04-13 21:15:00 63.504 kg [facility] BMI 2021-04-13 21:15:00 21.29 kg/m2 [facility] Oxygen saturation in 2021-04-13 21:15:00 98 /min University of Arterial blood by [facility] Pulse oximetry Branch Systolic blood 2021-01-24 14:04:00 137 mm[Hg] Univer sity of pressure [facility] Diastolic blood 2021-01-24 14:04:00 85 mm[Hg] Unive rsity of pressure [facility] Heart rate 2021-01-24 14:04:00 57 /min [facility] Body height 2021-01-24 14:04:00 172.7 cm [facility] Body weight 2021-01-24 14:04:00 62.596 kg [facility] BMI 2021-01-24 14:04:00 20.98 kg/m2 [facility] Systolic blood 2021-01-11 14:40:00 132 mm[Hg] Univer sity of pressure [facility] Diastolic blood 2021-01-11 14:40:00 87 mm[Hg] Unive rsity of pressure [facility] Heart rate 2021-01-11 14:40:00 81 /min [facility] Body temperature 2021-01-11 14:40:00 36.94 Joanne Univ [facility] Body height 2021-01-11 14:40:00 172.7 cm [facility] Body weight 2021-01-11 14:40:00 63.866 kg [facility] BMI 2021-01-11 14:40:00 21.41 kg/m2 [facility] Oxygen saturation in 2021-01-11 14:40:00 99 /min [facility] of Arterial blood by [facility] Pulse oximetry Branch Systolic blood 2021-01-05 03:58:00 134 mm[Hg] Univer sity of pressure [facility] Diastolic blood 2021-01-05 03:58:00 99 mm[Hg] Unive rsity of pressure [facility] Heart rate 2021-01-05 03:58:00 68 /min [facility] Body temperature 2021-01-05 03:58:00 36.89 Joanne Univ [facility] [place] [facility] [place] Respiratory rate 2021-01-05 03:58:00 20 /min Univ ersity of [facility] Oxygen saturation in 2021-01-05 03:58:00 99 /min [facility] of Arterial blood by [facility] Pulse oximetry Branch Body height 2021-01-05 00:47:00 172.7 cm [facility] Body weight 2021-01-05 00:47:00 65.318 kg [facility] BMI 2021-01-05 00:47:00 21.90 kg/m2 [facility] Systolic blood 2020-11-11 22:46:00 152 mm[Hg] Univer sity of pressure [facility] Diastolic blood 2020-11-11 22:46:00 100 mm[Hg] Unive rsity of pressure [facility] Heart rate 2020-11-11 22:46:00 73 /min [facility] [place] Body temperature 2020-11-11 22:40:00 36.89 Joanne Univ [facility] Respiratory rate 2020-11-11 22:40:00 16 /min Univ [facility]ity [facility] Body height 2020-11-11 22:40:00 172.7 cm [facility] Body weight 2020-11-11 22:40:00 65.59 kg [facility] BMI 2020-11-11 22:40:00 21.99 kg/m2 [facility] Systolic blood 2020-08-19 20:40:00 136 mm[Hg] Univer sity of pressure [facility] Diastolic blood 2020-08-19 20:40:00 80 mm[Hg] Unive rsity of pressure [facility] [place] Heart rate 2020-08-19 20:40:00 69 /min [facility] [place] Body temperature 2020-08-19 20:40:00 37 Joanne Univ [facility] Respiratory rate 2020-08-19 20:40:00 18 /min Univ [facility]ity [facility] [place] Body height 2020-08-19 20:40:00 172.7 cm [facility] Body weight 2020-08-19 20:40:00 68.493 kg [facility] BMI 2020-08-19 20:40:00 22.96 kg/m2 [facility] Systolic blood 2020-08-12 13:36:00 125 mm[Hg] Univer sity of pressure [facility] Diastolic blood 2020-08-12 13:36:00 82 mm[Hg] Unive rsity of pressure [facility] [place] Heart rate 2020-08-12 13:34:00 80 /min [facility] Body temperature 2020-08-12 13:34:00 36.5 Joanne Univ ersity of [facility] Respiratory rate 2020-08-12 13:34:00 16 /min Univ ersity of [facility] Oxygen saturation in 2020-08-12 13:34:00 99 /min [facility] Ar[facility]ial blood by [facility] Pulse oximetry Branch Body height 2020-08-11 04:00:00 172.7 cm [facility] Body weight 2020-08-11 03:59:00 74.844 kg [facility] BMI 2020-08-11 03:59:00 25.09 kg/m2 [facility] Systolic blood 2020-08-04 19:09:00 122 mm[Hg] Univer sity of pressure [facility] Diastolic blood 2020-08-04 19:09:00 77 mm[Hg] Unive rsity of pressure [facility] Heart rate 2020-08-04 19:09:00 74 /min [facility] Body temperature 2020-08-04 19:09:00 36.83 Joanne Univ ersity of [facility] Respiratory rate 2020-08-04 19:09:00 18 /min Univ ersity of [facility] Body height 2020-08-04 19:09:[address] [facility] Body weight 2020-08-04 19:09:00 74.481 kg [facility] BMI 2020-08-04 19:09:00 24.97 kg/m2 [facility] Systolic blood 2020-07-27 19:35:00 120 mm[Hg] Univer sity of pressure [facility] Diastolic blood 2020-07-27 19:35:00 73 mm[Hg] Unive rsity of pressure [facility] Heart rate 2020-07-27 19:35:00 92 /min Universi ty of [facility] Body temperature 2020-07-27 19:35:00 36.78 Joanne Univ ersity of [facility] Respiratory rate 2020-07-27 19:35:00 18 /min Univ ersity of [facility] Body height 2020-07-27 19:35:00 172.7 cm [facility] Body weight 2020-07-27 19:35:00 72.485 kg [facility] BMI 2020-07-27 19:35:00 24.30 kg/m2 Universi ty of [facility] Heart rate 2020-07-11 06:00:00 74 /min Universi ty of [facility] Oxygen saturation in 2020-07-11 05:45:00 100 /min University of Arterial blood by [facility] Pulse oximetry Branch Systolic blood 2020-07-11 04:07:00 128 mm[Hg] Univer sity of pressure [facility] Diastolic blood 2020-07-11 04:07:00 74 mm[Hg] Unive rsity of pressure [facility] Body temperature 2020-07-11 04:07:00 36.78 Joanne Univ ersity of [facility] Respiratory rate 2020-07-11 04:07:00 18 /min Univ ersity [facility] Body weight 2020-07-11 04:07:00 68.04 kg [facility] BMI 2020-07-11 04:07:00 22.81 kg/m2 [facility] Systolic blood 2020-06-29 16:41:00 129 mm[Hg] Univer sity of pressure [facility] Diastolic blood 2020-06-29 16:41:00 79 mm[Hg] Unive rsity of pressure [facility] Heart rate 2020-06-29 16:41:00 77 /min [facility] Body temperature 2020-06-29 16:41:00 36.56 Joanne Univ [facility]ity [facility] Respiratory rate 2020-06-29 16:41:00 16 /min Univ ersity [facility] Body height 2020-06-29 16:41:00 172.7 cm [facility] Body weight 2020-06-29 16:41:00 69.854 kg [facility] BMI 2020-06-29 16:41:00 23.42 kg/m2 [facility] Systolic blood 2020-06-10 15:10:00 118 mm[Hg] Univer sity of pressure [facility] Diastolic blood 2020-06-10 15:10:00 71 mm[Hg] Unive rsity of pressure [facility] Heart rate 2020-06-10 15:10:00 77 /min [facility] Body temperature 2020-06-10 15:10:00 36.89 Joanne Univ [facility] Respiratory rate 2020-06-10 15:10:00 18 /min Univ ersity [facility] Body height 2020-06-10 15:10:00 172.7 cm [facility] Body weight 2020-06-10 15:10:00 68.04 kg [facility] BMI 2020-06-10 15:10:00 22.81 kg/m2 [facility] Systolic blood 2020-05-13 18:59:00 118 mm[Hg] Univer sity of pressure [facility] Diastolic blood 2020-05-13 18:59:00 68 mm[Hg] Unive rsity of pressure [facility] Heart rate 2020-05-13 18:59:00 84 /min [facility] Body temperature 2020-05-13 18:59:00 36.83 Joanne Univ [facility] Respiratory rate 2020-05-13 18:59:00 18 /min Univ [facility]ity [facility] Body height 2020-05-13 18:59:00 172.7 cm [facility] Body weight 2020-05-13 18:59:00 66.225 kg [facility] BMI 2020-05-13 18:59:00 22.20 kg/m2 Universi ty of [facility] Systolic blood 2020-04-09 18:23:00 116 mm[Hg] Univer sity of pressure [facility] Diastolic blood 2020-04-09 18:23:00 68 mm[Hg] Unive rsity of pressure [facility] Heart rate 2020-04-09 18:23:00 78 /min [facility] Body temperature 2020-04-09 18:23:00 36.89 Joanne Univ [facility] Respiratory rate 2020-04-09 18:23:00 18 /min Univ [facility]ity of [facility] Body height 2020-04-09 18:23:00 [address] [facility] Body weight 2020-04-09 18:23:[address] [facility] BMI 2020-04-09 18:23:00 21.29 kg/m2 [facility] Systolic blood 2020-03-12 21:36:00 126 mm[Hg] Univer sity of pressure [facility] Diastolic blood 2020-03-12 21:36:00 69 mm[Hg] Unive rsity of pressure [facility] Heart rate 2020-03-12 21:36:00 68 /min Universi ty of [facility] Body temperature 2020-03-12 21:36:00 36.56 Joanne Univ ersity of [facility] Respiratory rate 2020-03-12 21:36:00 18 /min Univ ersity of [facility] Body height 2020-03-12 21:36:00 172.7 cm [facility] Body weight 2020-03-12 21:36:00 59.875 kg [facility] BMI 2020-03-12 21:36:00 20.07 kg/m2 [facility] Systolic blood 2020-02-12 19:52:00 127 mm[Hg] Univer sity of pressure [facility] Diastolic blood 2020-02-12 19:52:00 75 mm[Hg] Unive rsity of pressure [facility] Heart rate 2020-02-12 19:52:00 93 /min [facility] ty [facility] Body temperature 2020-02-12 19:52:00 36.5 Joanne Univ ersity of [facility] Respiratory rate 2020-02-12 19:52:00 16 /min Univ ersity of [facility] Body height 2020-02-12 19:52:00 172.7 cm [facility] [place] Body weight 2020-02-12 19:52:00 59.149 kg [facility] [place] BMI 2020-02-12 19:52:00 19.83 kg/m2 [facility] Systolic blood 2020-01-14 20:32:00 127 mm[Hg] Univer sity of pressure [facility] Diastolic blood 2020-01-14 20:32:00 70 mm[Hg] Unive rsity of pressure [facility] Heart rate 2020-01-14 20:32:00 96 /min Universi ty of [facility] Body temperature 2020-01-14 20:32:00 37.28 Joanne Univ ersity of [facility] Respiratory rate 2020-01-14 20:32:00 16 /min Univ ersity of [facility] Body height 2020-01-14 20:32:00 172.7 cm [facility] Body weight 2020-01-14 20:32:00 57.335 kg [facility] BMI 2020-01-14 20:32:00 19.22 kg/m2 Universi ty of [facility] Procedures Procedure Date / Time Performing Clinician Source Performed POCT TEST 2021-08-25 23:56:00 [facility] POCT MOLECULAR FLU 2021-08-25 23:38:00 Unknown, Attending [facility] [place] [facility] XR CHEST 2 VW 2021-07-27 02:40:17 Vinh Sandoval [place] o f [facility] POCT TEST 2021-07-27 02:15:00 Vinh Sandoval [facility] RAPID STREP SCREEN FOR 2021-07-27 02:01:00 Vinh Sandoval [facility] GROUP A Medical Branch COVID-19 (ID NOW RAPID 2021-07-27 02:01:00 Vinh Sandoval [facility] TESTING) Medical Branch URINALYSIS 2021-07-27 02:00:00 Vinh Sandoval [place] [facility] POCT TEST 2021-07-27 01:45:00 Vinh Sandoval [facility] XR HAND 3+ VW RIGHT 2021-04-13 22:16:54 Maegan Condon [facility] ASSIGNMENT OF BENEFITS 2021-02-15 14:47:26 Doctor Unassigned, [facility] [place] [facility] [place] XR CERVICAL SPINE 2 VW 2021-01-24 15:14:52 Cj Thompson [facility] CONSENT/REFUSAL FOR 2021-01-24 14:49:33 Doctor Unassigned, [facility] DIAGNOSIS AND TREATMENT [place] [facility] [place] ASSIGNMENT OF BENEFITS 2021-01-24 14:49:14 Doctor Unassigned, [facility] [place] [facility] URINALYSIS 2021-01-05 02:37:00 Delon Salazar [facility] XR CHEST 1 VW 2021-01-05 01:23:00 Delon Salazar [facility] LIPASE 2021-01-05 01:17:00 Delon Salazar [facility] TROPONIN I 2021-01-05 01:17:00 Delon Salazar [facility] COMP. METABOLIC PANEL 2021-01-05 01:17:00 Delon Salazar [facility] ([id number]) Medical Branch CBC WITH DIFF 2021-01-05 01:17:00 Delon Salazar [facility] PROTHROMBIN TIME / INR 2021-01-05 01:17:00 [facility] ACTIVATED PARTIAL 2021-01-05 01:17:00 Delon Salazar [facility] THRMPLAS VIGNESH [facility] CONSENT/REFUSAL FOR 2021-01-05 00:37:23 Doctor Unassraven, [facility] DIAGNOSIS AND TREATMENT [facility] CONSENT FOR CONTRACEPTION 2020-11-11 06:01:00 Doctor Unassraven, [facility] CBC WITH DIFF 2020-08-12 09:58:00 Fish, [facility] PREPARE PACKED RBC 2020-08-11 16:59:59 Fish, [facility] SECTION 2020-08-11 07:42:00 Fish, [facility] PANEL IDENTIFICATION 2020-08-11 06:05:00 Fish, Keisha [facility] COVID-19 (ID NOW RAPID 2020-08-11 04:52:00 Fish, [facility] TESTING) Medical Branch LAB ONLY COVID 2020-08-11 04:52:00 Fish, [facility] INTERPRETATION [facility] CBC WITH DIFF 2020-08-11 04:50:00 Fish, [facility] HEPATITIS B SURFACE 2020-08-11 04:50:00 Fish, [facility] ANTIGEN [facility] ADC OR LANA ONLY - RPR 2020-08-11 04:50:00 Fish, Keisha [facility] HIV 1/2 AG-AB WITH REFLEX 2020-08-11 04:50:00 Fish, Keisha [facility] HB ABO GROUPING 2020-08-11 04:35:00 Fish, [facility] RHO (D) IMMUNE GLOBULIN 2020-08-11 04:35:00 Fish, [facility] NOTICE OF PRIVACY 2020-08-11 03:46:05 Doctor Unassraven, [facility]ALYSIS W/O 2020-08-04 00:00:00 Sly Guo [facility] SPECIFIC GRAVITY [facility] >14 WEEKS US 2020-07-27 20:03:57 Jason Rey [facility] DSU PRE-OP 2020-07-27 06:01:00 Doctor Unassigned, [facility] [place] [facility] POCT URINALYSIS W/O 2020-07-27 00:00:00 Jason Rey [facility] SPECIFIC GRAVITY [facility] [place] ASSIGNMENT OF BENEFITS 2020-07-11 03:39:18 [facility] [place] [facility] CONSENT/REFUSAL FOR 2020-07-11 03:36:58 Doctor Unassigned, [facility] DIAGNOSIS AND TREATMENT [place] [facility] POCT URINALYSIS W/O 2020-06-29 16:42:00 Jason Rey [facility] SPECIFIC GRAVITY [facility] [place] MEDICAL RELEASE/CLEARANCE 2020-06-21 05:01:00 Doctor Unassigned, [facility] FORMS [place] [facility] GLUCOSE 1 HOUR POST 2020-06-10 17:34:00 [facility]FF 2020-06-10 17:34:00 Sly Guo [facility] ADC OR [place] ONLY - RPR 2020-06-10 17:34:00 [facility]AB WITH REFLEX 2020-06-10 17:34:00 [facility] 2020-06-10 17:30:00 Sly Guo [facility] TDAP VACCINE, >11 YRS, IM 2020-06-10 15:20:40 [facility] FLU VACC ([id number]), 6+ 2020-06-10 15:20:[address] [facility] [facility] IM, QUAD Medical Branch POCT URINALYSIS W/O 2020-06-10 00:00:00 Sly Guo [facility] SPECIFIC GRAVITY [facility] POCT URINALYSIS W/O 2020-05-13 00:00:00 Jason Rey [facility] SPECIFIC [facility] TEST IN QUESTION- MISSING 2020-04-09 19:36:00 Sly Guo Un [facility] REQUIRED INFO-Q Medical Branch POCT URINALYSIS W/O 2020-04-09 00:00:00 Jason Rey [facility] SPECIFIC GRAVITY Medical Branch POCT URINALYSIS W/O 2020-03-12 00:00:00 Jason Rey [facility] ty [facility] SPECIFIC GRAVITY Medical Branch SCANNED LAB RESULTS 2020-02-17 05:01:00 Doctor Alex, Larissa [facility] [place] [facility] POCT URINALYSIS W/O 2020-02-12 19:55:00 Sly Guo [facility] SPECIFIC GRAVITY Medical Branch ASSIGNMENT OF BENEFITS 2020-01-29 15:12:33 Doctor [facility] [place] [facility] <14 WEEKS US 2020-01-14 22:30:44 Sly Guo [facility] ADC / [facility] - DRUG SCREEN 2020-01-14 21:25:00 Sly Guo [facility] [place] ASSIGNMENT OF BENEFITS 2020-01-14 20:21:31 Doctor [facility] [place] [facility] POCT TEST 2020-01-14 00:00:00 Sly Guo [facility] POCT URINALYSIS W/O 2020-01-14 00:00:00 Sly Guo [facility] [place] Encounters Start End Encounter Admission Attending Care Care Encounter Source Date/Time Date/Time Type Type Clinicians Facility Department ID 2021-07-03 Emergency [facility] [id number] Univers 17:08:00 ity of [facility] 2021-07-02 Outpatient P [facility] RONY [id number] Univers 10:03:[address] [facility] 2021-07-02 Emergency [facility] [id number] Univers 03:54:[address] [facility] 2021-07-02 Outpatient P [facility] RONY [id number] Univers 03:54:[address] [facility] 2021-08-25 2021-08-25 Outpatient R AUDI [facility] [id number] Univers 17:20:00 19:10:18 NICOLE Rubalcava it y of [facility] 2021-08-25 2021-08-25 Urgent Nicole Victor [facility] 1.2 .840.114 [id number] Univers 17:20:00 19:10:18 Care Unknown, Attending HEALTH 350.1.13.10 ity of Jessica Rosa YAMILEKARL 4.2.7.2.686 [place] CEM?BLEA [phone] Ar kandace GIPSON [address] [place] [address] MEDICAL OFFICE BUILDING 2021-08-25 2021-08-25 Outpatient R [facility] [id number] Univers 17:20:00 17:20:00 [id number] ity [facility] 2021-07-26 2021-07-26 Emergency X SANDOVAL, [facility] ERT [id number] Univers 19:39:00 21:38:00 VINH [facility] 2021-07-26 2021-07-26 Emergency [facility] 1.2.142.649 [id number] Univers 19:39:00 21:38:00 Vinh LOPEZ 350.1.13.10 i ty of [place] 4.2.7.2.686 [facility] [phone] [facility] [address] [place] 2021-06-22 2021-06-22 [facility] [id number] 8L-20 Univers 15:20:00 15:20:00 JEFERSON [id number] y [facility] 2021-06-22 2021-06-22 Outpatient R [facility] [id number] Univers 15:20:00 15:20:00 JEFERSON [facility] 2021-05-16 2021-05-16 Outpatient R SARI SLY [facility] [id number] Univers 08:00:00 08:00:00 ity [facility] 2021-05-16 2021-05-16 Outpatient R SARI [facility] [id number] Univers 08:00:00 08:00:00 [id number] ity [facility] 2021-05-15 2021-05-15 Telephone JEFERSON Mancuso 1.2.957.098 [id number] Univers 00:00:00 00:00:00 Kathryn HUGHES 350.1.13.10 i ty of [facility] 4.2.7.2.686 [facility] [phone] [facility] [address] [place] 2021-05-14 2021-05-14 Laboratory Only, Ang Db Test [facility] 1.2.8 40.114 [id number] Univers 12:33:18 12:48:18 Only Denise De La Cruz [facility] 350.1.13.10 ity of [place] 4.2.7.2.686 Yoandy as Cem?Blea [phone] Ar kandace gipson [address] [place] [facility] Building 2021-05-14 2021-05-14 Outpatient [facility] [id number] -[id number] Univers 12:35:00 12:35:00 [id number] ity [facility] 2021-05-14 2021-05-14 Outpatient R JONO [facility] [id number] Univers 12:35:00 12:35:00 DENISE ity [facility] 2021-05-11 2021-05-11 [facility] 1.2.261.478 [id number] Univers 15:00:09 16:57:00 Visit Jeferson BROWN 350.1.13.10 ity of [facility] 4.2.7.2.686 [place] [facility] AT [phone] Ar kandace RIVAS 198 [facility] 2021-05-11 2021-05-11 [facility] [id number] 8L-20 Univers 15:40:00 15:40:00 JEFERSON [id number] ity [facility] 2021-05-11 2021-05-11 [facility] [id number] Univers 15:40:00 15:40:00 [facility] 2021-04-13 2021-04-13 [facility] 1.2.840.114 [id number] Univers 16:32:24 23:59:00 Encounter Maegan Lopez 350.1.13.10 ity of [place].2.7.2.686 [place] [phone] [facility] [address] [place] [address] 2021-04-13 2021-04-13 Urgent Maegan Condon [facility] 1.2.840.114 [id number] Univers 16:11:51 16:31:51 Care Cecily Morales [facility] 350.1.13.10 ity of [place] 4.2.7.2.686 Yoandy as Professio [phone] Ar dical [place] [address] [address] Office [address] One 2021-04-13 2021-04-13 Outpatient R [facility] [id number] -[id number] Univers 16:20:00 16:20:00 [id number] [facility] 2021-04-13 2021-04-13 Outpatient R ANDREW, [facility] [id number] Univers 16:20:00 16:20:00 CECILY y o [facility] 2021-04-09 2021-04-09 Outpatient R [facility] [id number] -[id number] Univers 16:40:00 16:40:00 [id number] [facility] 2021-04-09 2021-04-09 Outpatient R ANDREW, [facility] [id number] Univers 16:40:00 16:40:00 CECILY y o [facility] 2021-03-07 2021-03-07 Outpatient R MASTER, [facility] [id number] Univers 15:40:00 15:40:00 ALISSA [facility] 2021-02-16 2021-02-16 Outpatient R ROYER, [facility] [id number] -[id number] Univers 14:00:00 14:00:00 JACKSON [id number] [facility] o [facility] 2021-02-16 2021-02-16 Outpatient R ROYER, [facility] [id number] Univers 14:00:00 14:00:00 JACKSON [facility] o [facility] 2021-02-15 2021-02-15 Outpatient [facility] [id number] Univers 15:40:00 15:40:00 [facility] 2021-02-15 2021-02-15 Outpatient R CHANTAL, [facility] [id number]-20 Univers 10:30:00 10:30:00 SIMRAN [id number] [facility] 2021-02-15 2021-02-15 Outpatient R CHANTAL, [facility] [id number] Univers 10:30:00 10:30:00 SIMRAN [facility] 2021-02-15 2021-02-15 Ramonita GOVEA 1.2.840.114 [id number] Univers 00:00:00 00:00:00 Only Unassigned, SAUL 350.1.13.10 ity of [facility] 4.2.7.2.686 Yoandy [phone] [facility] [address] 2021-02-11 2021-02-11 Outpatient R [facility] [id number] -[id number] Univers 10:30:00 10:30:00 [id number] ity [facility] 2021-02-11 2021-02-11 Outpatient R [facility] [id number] Univers 10:30:00 10:30:[address] [facility] 2021-01-25 2021-01-25 [facility] [id number]-20 Univers 11:30:00 11:30:00 CECILY [id number] ity o [facility] 2021-01-25 2021-01-25 Outpatient [facility] [id number] Univers 11:30:00 11:30:00 CECILY ity o [facility] 2021-01-24 2021-01-24 Hospital Taisha, [facility] 1.2.138.084 [id number] Univers 09:53:31 23:59:00 Encounter Cj Lopez 350.1.13.10 ity [facility] 4.2.7.2.686 [facility] s [place] [phone] [facility] [address] [place] 2021-01-24 2021-01-24 Outpatient R CJ THOMPSON [facility] [id number] Univers 10:00:00 10:00:00 CJ THOMPSON [id number] ity [facility] 2021-01-24 2021-01-24 [facility] 1.2.840.114 [id number] Univers 08:46:14 09:45:39 Visit Cj Lopez 350.1.13.10 ity [facility] 4.2.7.2.686 [facility] s [facility] [phone] Ar dical nal [address] [facility] 2021-01-24 2021-01-24 Outpatient R CJ THOMPSON [facility] [id number] Univers 08:40:00 08:40:00 TAISHACJ CASTRO ity of [facility] 2021-01-24 2021-01-24 Orders Doctor JEFERSON 1.2.840.114 [id number] Univers 00:00:00 00:00:00 Only Unassigned, SAUL 350.1.13.10 [place]y of [place] [facility] 4.2.7.2.686 Yoandy as [phone] [facility] [address] 2021-01-11 2021-01-11 [employer] Lab, Adc Fam Pob I [facility] 1.2. 840.114 [id number] Univers 10:04:17 10:24:17 [facility] 350.1.13.10 ity of [place] 4.2.7.2.686 Yoandy as Professio [phone] [address] Office Building One 2021-01-11 2021-01-11 Office [facility] 1.2.840.114 [id number] Univers 09:27:49 10:06:33 Visit [facility] 350.1.13.10 i ty of [place] 4.2.7.2.686 Yoandy as Professio [phone] [address] Office Building One 2021-01-11 2021-01-11 Outpatient R ANDREW [facility] [id number] L-20 Univers 09:30:00 09:30:00 CECILY [id number] ity o [facility] 2021-01-11 2021-01-11 [facility] [id number] Univers 09:30:00 09:30:00 CECILY ity o f [facility] 2021-01-04 2021-01-04 Emergency [facility] 1.2.638.925 [id number] Univers 19:51:00 23:03:00 Delon Rubalcava Dash 350.1.13.10 it[place] of [place].2.7.2.686 [place] [phone] [facility] [address] [place] 2020-12-16 2020-12-16 Outpatient R HUGH [facility] [id number] L-20 Univers 13:30:00 13:30:00 SIMONEDIDEONTE [id number] ity o f [facility] 2020-12-16 2020-12-16 Outpatient R HUGH [facility] [id number] Univers 13:30:00 13:30:00 WONDIFUL ity o f [facility] 2020-11-23 2020-11-23 Outpatient [facility] [id number] Univers 15:25:00 15:25:[address] [facility] 2020-11-11 2020-11-11 Office Sari [facility] 1.2.990.418 [id number] Univers 15:53:22 16:56:53 Visit Andra Lopez 350.1.13.10 i ty of [place] 4.2.7.2.686 [place] [phone] Ar dical [address] 2020-11-11 2020-11-11 Outpatient R SARI [facility] [id number] 8L-20 Univers 16:00:00 16:00:00 [id number] ity [facility] 2020-11-11 2020-11-11 Outpatient R SARI [facility] [id number] Univers 16:00:00 16:00:00 ity [facility] 2020-11-11 2020-11-11 Orders Doctor JEFERSON 1.2.840.114 [id number] Univers 00:00:00 00:00:00 Only Unassigned, SAUL 350.1.13.10 [place] of [place] [facility] 4.2.7.2.686 Yoandy as [phone] [address] 2020-08-19 2020-08-19 Nurse Nurse, [facility] 1.2.840.114 [id number] Univers 14:04:49 14:39:59 Visit Jason Rey 350.1.13.10 ity of [place].2.7.2.686 [place] [phone] Ar dic[address] 2020-08-19 2020-08-19 Outpatient R KELY [facility] [id number] 8L-20 Univers 14:00:00 14:00:00 JASON [id number] ity [facility] 2020-08-19 2020-08-19 Outpatient R KELY [facility] [id number] Univers 14:00:00 14:00:00 JASON ity [facility] 2020-08-10 2020-08-12 Hospital Keisha Gibson [facility] 1.2.840.114 [id number] Univers 21:46:00 15:40:00 Encounter Dash 350.1.13.10 ity of [place] 4.2.7.2.686 [place] [phone] [place] [id number] [place] 2020-08-11 2020-08-11 Outpatient R SARI [facility] [id number]-20 Univers 15:45:00 15:45:[address] [facility] 2020-08-11 2020-08-11 Outpatient R SARI [facility] [id number] Univers 15:45:00 15:45:00 ity [facility] 2020-08-04 2020-08-04 Routine Sari [facility] 1.2.071.731 [id number] Univers 13:01:05 13:42:03 Andra Lopez 350.1.13.10 ity of Visit [place] 4.2.7.2.686 [place] [phone] Ar dical nal 134 [facility] 2020-08-04 2020-08-04 Outpatient R SARI SLY [facility] [id number] 8L-20 Univers 13:00:00 13:00:00 ity [facility] 2020-08-04 2020-08-04 Outpatient Vicky GUO [facility] [id number] Univers 13:00:00 13:00:00 ity [facility] 2020-07-27 2020-07-27 [employer] Verenice, Eli Lab Main [facility] 1.2.8 40.114 [id number] Univers 14:13:09 14:28:09 Visit Sly Guo Dash 350.1.13.10 ity of [place] 4.2.7.2.686 [place] [phone] Ar dical nal 353 [facility] 2020-07-27 2020-07-27 [facility]ine [facility] 1.2.246.032 [id number] Univers 13:10:48 13:59:05 Jason Lopez 350.1.13.10 ity of Visit [place] 4.2.7.2.686 [place] [facility] [phone] Ar dical [address] 2020-07-27 2020-07-27 Outpatient R KELY [facility] [id number] 8L-20 Univers 13:00:00 13:00:00 JASON [id number] ity [facility] 2020-07-27 2020-07-27 [facility] [id number] Univers 13:00:00 13:00:00 JASON ity [facility] 2020-07-27 2020-07-27 Orders Doctor JEFERSON 1.2.840.114 [id number] Univers 00:00:00 00:00:00 Only Unassigned, SAUL 350.1.13.10 [facility] 4.2.7.2.686 Yoandy as [phone] [address] 2020-07-13 2020-07-13 Outpatient R SARI [facility] [id number] 8L-20 Univers 13:00:00 13:00:[address] [facility] 2020-07-13 2020-07-13 Outpatient R GUO [facility] [id number] Univers 13:00:00 13:00:[address] [facility] 2020-07-10 2020-07-11 Hospital Sari [facility] 1.2.840.114 [id number] Univers 21:40:00 00:27:00 Encounter Andra Lopez 350.1.13.10 ity of [place] 4.2.7.2.686 [place] [phone] [facility] [address] [place] 2020-07-10 2020-07-10 Orders Doctor GOVEA 1.2.840.114 [id number] Univers 00:00:00 00:00:00 Only Unassigned, SAUL 350.1.13.10 ity of [place] [facility] 4.2.7.2.686 Yoandy as [phone] [facility] [address] [place] 2020-07-06 2020-07-06 Telephone Guo [facility] 1.2.840.114 [id number] Univers 00:00:00 00:00:00 Cam Dash 350.1.13.10 i ty of [place] 4.2.7.2.686 [place] [phone] Ar dical nal [address] [place] [address] 2020-07-02 2020-07-02 [employer] Linn, Eli [facility] [place] 1.2 .840.114 [id number] Univers 14:58:16 15:28:16 Visit Gary Cohen 350.1.13.10 ity of [place] 4.2.7.2.686 [place] [phone] Ar dic[address] 2020-07-02 2020-07-02 Outpatient [facility] [id number] Univers 15:00:00 15:00:00 [facility] 2020-07-02 2020-07-02 Outpatient R [facility] [id number] Univers 15:00:00 15:00:00 ity [facility] 2020-06-29 2020-06-29 Routine Kely [facility] 1.2.665.670 [id number] Univers 11:32:27 11:47:27 Jason Lopez 350.1.13.10 ity of Visit [place] 4.2.7.2.686 [place] [phone] [address] 2020-06-29 2020-06-29 [facility] [id number] 8L-20 Univers 11:30:00 11:30:00 JASON [id number] [facility] 2020-06-29 2020-06-29 Outpatient R [facility] [id number] Univers 11:30:00 11:30:00 JASON [facility] 2020-06-22 2020-06-22 Case Sly Guo [facility] 1.2.138.597 [id number] Univers 00:00:00 00:00:00 Management Andra Lopez 350.1.13.10 ity of [place] 4.2.7.2.686 [place] [phone] Ar dical nal [address] [place] [address] 2020-06-21 2020-06-21 Orders Doctor GOVEA 1.2.840.114 [id number] Univers 00:00:00 00:00:00 Only Unassigned, SAUL 350.1.13.10 ity of [place] [facility] 4.2.7.2.686 Yoandy as [phone] [address] 2020-06-17 2020-06-17 Telephone Sly Guo [facility] 1.2.840.114 [id number] Univers 00:00:00 00:00:00 Andra Lopez 350.1.13.10 i ty of [place] 4.2.7.2.686 [place] [phone] Ar dical nal 134 [facility] 2020-06-10 2020-06-10 Routine Sly Guo [facility] 1.2.847.419 [id number] Univers 09:49:06 12:09:43 Andra Lopez 350.1.13.10 ity of Visit [place] 4.2.7.2.686 [place] [phone] Ar dical [facility] 134 [facility] 2020-06-10 2020-06-10 [employer] 2, Adc [facility] 1.2.840.114 [id number] [facility] 11:05:14 11:20:14 Visit Sly Guo 350.1.13.10 ity of [place] 4.2.7.2.686 [place] [phone] [facility] 353 [facility] 2020-06-10 2020-06-10 Outpatient R DARIO [facility] [id number] 8L-20 Univers 09:30:00 09:30:[address] [facility] 2020-06-10 2020-06-10 Outpatient R SLY GUO [facility] [id number] Univers 09:30:00 09:30:[address] [facility] 2020-06-10 2020-06-10 Telephone Kely [facility] 1.2.840.114 [id number] Univers 00:00:00 00:00:00 Jason Lopez 350.1.13.10 i ty of [place] 4.2.7.2.686 [place] [phone] Ar dical nal 134 [facility] 2020-05-21 2020-05-21 [employer] Ultrasound, Adc [facility] [place] 1.2 840.114 [id number] Univers 14:02:50 15:00:55 Visit Fanta RichardfelibertoDomi mann [place] 350.1 .13.10 ity of [place] 4.2.7.2.686 [place] [phone] [address] 2020-05-21 2020-05-21 Outpatient P [facility] [id number] Univers 14:00:00 14:00:00 [id number] ity [facility] 2020-05-21 2020-05-21 Outpatient P [facility] [id number] Univers 14:00:00 14:00:00 ity [facility] 2020-05-13 2020-05-13 Routine Kely [facility] 1.2.209.478 [id number] Univers 13:37:43 13:52:43 Jason Dash 350.1.13.10 ity of Visit [place] 4.2.7.2.686 [place] [phone] [address] 2020-05-13 2020-05-13 Outpatient R KELY [facility] [id number] 8L-20 Univers 13:30:00 13:30:00 [facility] 2020-05-13 2020-05-13 Outpatient R KELY [facility] [id number] Univers 13:30:00 13:30:00 [facility] 2020-05-07 2020-05-07 Outpatient R KELY [facility] [id number] 8L-20 Univers 08:00:00 08:00:00 JASON ity [facility] 2020-05-07 2020-05-07 Outpatient R KELY [facility] [id number] Univers 08:00:00 08:00:00 [facility] 2020-04-30 2020-04-30 Outpatient R [facility] [id number] Univers 09:00:00 09:00:00 [id number] ity [facility] 2020-04-30 2020-04-30 Outpatient P [facility] [id number] Univers 09:00:00 09:00:[address] [facility] 2020-04-30 2020-04-30 Outpatient P [facility] [id number] Univers 09:00:00 09:00:[address] [facility] 2020-04-15 2020-04-15 Telephone Sly Guo [facility] 1.2.840.114 [id number] Univers 00:00:00 00:00:00 Cam [place] 350.1.13.10 i ty of [place] 4.2.7.2.686 [place] [phone] [address] 2020-04-15 2020-04-15 Telephone Sly Guo [facility] 1.2.840.114 [id number] Univers 00:00:00 00:00:00 Cam [place] 350.1.13.10 i ty of [place] 4.2.7.2.686 [place] [phone] [address] 2020-04-13 2020-04-13 Telephone [facility] 1.2.840.114 [id number] Univers 00:00:00 00:00:00 Cam [place] 350.1.13.10 i ty of [place] 4.2.7.2.686 [place] [phone] [address] 2020-04-09 2020-04-09 Routine Sly Guo [facility] 1.2.300.428 [id number] Univers 13:15:04 14:09:20 Cam [place] 350.1.13.10 ity of Visit [place] 4.2.7.2.686 [place] [phone] [address] 2020-04-09 2020-04-09 Outpatient SARI SLY [facility] [id number] 8L-20 Univers 13:15:00 13:15:[address] [facility] 2020-04-09 2020-04-09 Outpatient R GUO [facility] [id number] Univers 13:15:00 13:15:[address] [facility] 2020-04-09 2020-04-09 Orders Sari Slybin GOVEA 1.2.974.284 [id number] Univers 00:00:00 00:00:00 Only Cam SAUL 350.1.13.10 it y of HOSPITAL 4.2.7.2.686 Yoandy as [phone] [address] 2020-03-15 2020-03-15 Outpatient R [facility] [id number] -[id number] Univers 09:45:00 09:45:[id number] [facility] 2020-03-15 2020-03-15 Outpatient R [facility] [id number] Univers 09:45:00 09:45:[address] [facility] 2020-03-12 2020-03-12 Routine [facility] 1.2.037.353 [id number] Univers 16:14:19 16:45:44 Jason Lopezton 350.1.13.10 ity of Visit [place] 4.2.7.2.686 [place] [phone] [address] 2020-03-12 2020-03-12 [facility] [id number] 8L-20 Univers 16:30:00 16:30:[address]AS[id number] ity of [facility] 2020-03-12 2020-03-12 Outpatient [facility] [id number] Univers 16:30:00 16:30:00 JASON ity [facility] 2020-02-25 2020-02-25 Case Dario Guoen [facility] 1.2.015.531 [id number] Univers 00:00:00 00:00:00 Management Cam [place] 350.1.13.10 ity of [place].2.[place].2.686 [place] [phone] [address] 2020-02-25 2020-02-25 Telephone Sly Guo [facility] 1.2.840.114 [id number] Univers 00:00:00 00:00:00 Cam [place] 350.1.13.10 i ty of [place] 4.2.7.2.686 [place] [phone] [address] 2020-02-17 2020-02-17 Outpatient R [facility] [id number] Univers 09:30:00 09:30:[address] [facility] 2020-02-17 2020-02-17 Outpatient R [facility] [id number] Univers 09:00:00 09:00:[id number] [facility] 2020-02-17 2020-02-17 Orders Doctor JEFERSON 1.2.840.114 [id number] Univers 00:00:00 00:00:00 Only Unassigned, SAUL 350.1.13.10 [place] [facility] 4.2.7.2.686 Yoandy as [phone] [address] 2020-02-12 2020-02-12 Routine Dario Guoen [facility] [id number] Univers 14:46:15 15:07:32 Andra Lopez [id number] ity [id number] [phone] Ar dical nal [address] [place] [address] 2020-02-12 2020-02-12 Outpatient R SARI [facility] [id number] Univers 14:30:00 14:30:[id number] [facility] 2020-02-12 2020-02-12 Outpatient R [facility]I [facility] [id number] Univers 14:30:00 14:30:[address] [facility] 2020-02-11 2020-02-11 Outpatient R SARI [facility] [id number] Univers 13:15:00 13:15:[id number] [facility] 2020-02-11 2020-02-11 Outpatient R SARI [facility] [id number] Univers 13:15:00 13:15:[address] [facility] 2020-02-05 2020-02-05 Telephone Sari [facility] [id number] Univers 00:00:00 00:00:00 Andra Lopez [id number] [id number] [phone] Ar dical nal [address] [place] [address] 2020-01-29 2020-01-29 [employer], Adc Lab [facility] [id number] Univers 10:17:48 10:32:48 Visit Dario Guobin Lopez [id number] [id number] [phone] Ar dical [facility] 2020-01-29 2020-01-29 Outpatient R [facility] [id number] Univers 08:45:00 08:45:[id number] [facility] [facility] 2020-01-29 2020-01-29 Outpatient R [facility] [id number] Univers 08:45:00 08:45:[address] [facility] 2020-01-29 2020-01-29 Orders Doctor JEFERSON [id number] Univers 00:00:00 00:00:00 Only Unassigned, SAUL 350.1.13.10 ity of [facility] 4.2.7.2.686 Yoandy as [phone] [address] 2020-01-29 2020-01-29 Case Sly Guo [facility] .[id number] Univers 00:00:00 00:00:00 Management Cam Dash 350.1.13.10 [place] [phone] Ar dical nal 134 [facility] 2020-01-15 2020-01-15 Outpatient R [facility] [id number] Univers 10:00:00 10:00:[id number] [facility] 2020-01-15 2020-01-15 Outpatient R [facility] [id number] Univers 10:00:00 10:00:[address] [facility] 2020-01-14 2020-01-14 Routine GuoDarioen [facility] [id number] Univers 15:23:55 16:29:36 Cam Dash 350.1.13.10 ity of [place] [phone] Ar dical nal [address] [place] [address] 2020-01-14 2020-01-14 Outpatient R SARI SLY [facility] [id number] [id number] Univers 15:15:00 15:15:[id number] [facility] 2020-01-14 2020-01-14 Outpatient R SARIDARIOEN [facility] [id number] Univers 15:15:00 15:15:[address] [facility] 2020-01-14 2020-01-14 Orders Doctor JEFERSON [id number] Univers 00:00:00 00:00:00 Only Unassigned, SAUL 350.1.13.10 ity of [facility] 4.2.7.2.686 Yoandy as [phone] [address] Results Test Description Test Time Test Comments Results Result Comments Source POCT TEST 2021-08-25 23:56:00 Test Item Value Reference Range Interpretation Comme nts POCT PREG (test code = 1605) Negative On board controls acceptable with C Line Yes (test code = 3574) POCT PREG LOT # (test code = 3575) POCT PREG TEST DATE (test code = 3576) MARIETTA (test code = MARIETTA) accurate development and interpretation of all internal controls Lab Interpretation (test code = 69891-1) Normal [facility] MOLECULAR [id number] 23:49:43 Test Item Value Reference Range Interpretation Comments POCT Molecular FluA (test code = Negative Negative 92665-9) POCT Molecular FluB (test code = Negative Negative 75175-4) Lab Interpretation (test code = Normal 65342-9) [facility] [id number] 02:15:00 Test Item Value Reference Range Interpretation Comments POCT PREG (test code = 1605) negative On board controls acceptable with present C Line (test code = 3574) POCT PREG LOT # (test code = 3575) [id number] POCT PREG TEST DATE (test 10/03/2022 code = 3576) Lab Interpretation (test code = Normal 09447-7) [facility] [id number] 01:45:00 Test Item Value Reference Range Interpretation Comments POCT PREG (test code = 1605) negative On board controls acceptable with positive C Line (test code = 3574) POCT PREG LOT # (test code = 3575) [id number] POCT PREG TEST DATE (test 10/03/2022 code = 3576) Lab Interpretation (test code = Normal 07935-1) [facility] C[facility] 2 [id number] 16:41:33 On the lateral view, cervical spine can be visualized to the level of C7. Straightening of the cervical spine.No acute fracture of the cervical spine.No abnormal prevertebral soft tissue swelling is identified. Mild cervical spine degenerative changes.Left upper thoracic levoscoliosis, clinically correlate. EXAMINATION: ?XR CERVICAL SPINE 2 VW HISTORY: question cervical radiculopathy TECHNIQUE: AP and lateral views of the cervical spine were obtained. COMPARISON: None. [facility], Radiant Results Inft User - 01/24/2021 11:42 AM CDTEXAMINATION: XR CERVICAL SPINE 2 VWHISTORY: question cervical radiculopathy TECHNIQUE: AP and lateral views of the cervical spine were obtained.COMPARISON: None.IMPRESSIONOn the lateral view, cervical spine can be visualized to the level of C7. Straightening of the cervical spine.No acute fracture of the cervical spine.No abnormal prevertebral soft tissue swelling is identified. Mild cervical spine degenerative changes.Left upper thoracic levoscoliosis, clinically correlate. [facility]IS2021-[facility]-05 03:33:00 Test Item Value Reference Range Interpretation Comments APPEARANCE (test code = Hazy Clear A 9317406473) COLOR (test code = Yellow Yellow 8242397187) PH (test code = 4.8-8.0 1516471936) SP GRAVITY (test code = 1.003-1.030 3620103553) GLU U QUAL (test code = Normal Normal 1344892592) BLOOD (test code = Negative Negative 0893617523) KETONES (test code = Negative Negative 7199015764) PROTEIN (test code = Negative Negative 2887-8) UROBILIN (test code = Normal Normal 7681411211) BILIRUBIN (test code = Negative Negative 3914670422) NITRITE (test code = Negative Negative 6896628278) LEUK GAMAL (test code = 75/uL Negative A 0440441863) RBC/HPF (test code = <1 See_Comment [Autom ated message] 3941381032) The system [employer] generated this result transmitted ref erence range: 0 - 3 HP F. The reference range was not used to int erpret this result as normal/abnormal . WBC/HPF (test code = See_Comment H [Autom ated message] 7469474937) The system [employer] generated this result transmitted ref erence range: 0 - 5 HP F. The reference range was not used to int erpret this result as normal/abnormal . BACTERIA (test code = Few Negative A 9974983609) MUCOUS (test code = Slight Negative LPF A 5655189311) SQ EPITH (test code = HPF 8642474511) Lab Interpretation (test Abnormal code = 30331-9) [facility] CenterTROPONIN [id number] 02:00:02 Test Item Value Reference Range Interpretation Comments TROPONIN I (test 0.003 ng/mL See_Comment [Automated code = 8075943270) message] The system which generated this result transmitted reference range : <=0.034. The reference range was not used to interpret this result as normal/abnormal . MARIETTA (test code = Equal or Less than MARIETTA) 0.034 ng/ml---Normal ?Note: Cardiac troponin begins to rise 3-4 hours after the onset of ischemia. Repeat in 4-6 hours if the sample was drawn within 3-4 hours of the onset of the symptom and found normal. Between 0.035 and 0.120 ng/mL--- Borderline. Questionable myocardial injury or necrosis ? ?Note: Serial measurement may be necessary to confirm or exclude the diagnosis of myocardial injury or necrosis; Clinical correlation (symptoms, EKGs, imaging studies, and others) required; Repeat in 4-6 hours if clinically indicated. ? Equal or Higher than 0.121 ng/mL---Abnormal. Myocardial Injury or Necrosis Likely ? Biotin has been reported to cause a negative bias, interpret results relative to patient's use of biotin. ? Lab Interpretation Normal (test code = 52314-4) [facility]PTT2021-[facility]-05 01:49:18 Test Item Value Reference Range Interpretation Comments APTT Patient (test See_Comment [Automat ed code = 3173-2) message] The system which generated this result transmitted reference range : 23 - 38 Seconds . The reference range was not used to interpr et this result as normal/abnormal . MARIETTA (test code = MARIETTA) The [facility] patient population mean normal value for aPTT is 30 seconds. Lab Interpretation Normal (test code = 40706-3) [facility]. METABOLIC PANEL (16169)2021-01-05 01:48:58 Test Item Value Reference Range Interpretation Comments NA (test code = 140 mmol/L 135-145 3048059887) K (test code = 3.6 mmol/L 3.5-5.0 9561601383) CL (test code = 105 mmol/L 98-108 0513659766) CO2 TOTAL (test code 24 mmol/L 23-31 = 3332328841) AGAP (test code = 2-16 0348634367) BUN (test code = 16 mg/dL 7-23 2324031740) GLUCOSE (test code = 93 mg/dL 70-110 7495890173) CREATININE (test code 0.98 mg/dL 0.50-1.04 = 1006760203) TOTAL BILI (test code 0.9 mg/dL 0.1-1.1 = 7454324038) CALCIUM (test code = 9.4 mg/dL 8.6-10.6 4131520156) T PROTEIN (test code 7.8 g/dL 6.3-8.2 = 8687598907) ALBUMIN (test code = 4.6 g/dL 3.5-5.0 4457573176) ALK PHOS (test code = 51 U/L 34-122 7624406816) ALTv (test code = 12 U/L 5-35 1742-6) AST(SGOT) (test code 20 U/L 13-40 = 4072988878) eGFR (test code = mL/min/1.73m2 9306048449) MARIETTA (test code = MARIETTA) Association of Glomerular Filtration Rate (GFR) and Staging of Kidney Disease* + + +- +| GFR (mL/min/1.73 m2) ?| With Kidney Damage ?| ?Without Kidney Damage+ ------+ ----+ ------+| ?>90 ?| ?Stage one ?| ? Normal ?+ -+ + -+| ?60-89 ?| ?Stage two ?| ? Decreased GFR ? + + +- +| ?30-59 ?| ?Stage three ?| ? Stage three ? + + +- +| ?15-29 ?| ?Stage four ? | ? Stage four ?+ -+ + -+| ?<15 (or dialysis) ? ?| ?Stage five ? | ? Stage five ?+ -+ + -+ *Each stage assumes the associated GFR level has been in effect for at least three months. ?Stages 1 to 5, with or without kidney disease, indicate chronic kidney disease. Notes: Determination of stages one and two (with eGFR >59mL/min/1.73 m2) requires estimation of kidney damage for at least three months as defined by structural or functional abnormalities of the kidney, manifested by either:Pathological abnormalities or Markers of kidney damage (including abnormalities in the composition of the blood or urine or abnormalities in imaging tests). [facility] CenterLIPASE, [id number] 01:48:16 Test Item Value Reference Range Interpretation Comments LIPASE (test code = 8257904436) 166 U/L 0-220 Lab Interpretation (test code = Normal 64049-4) [facility] CenterPROTHROMBIN TIME / [id number] 01:47:15 Test Item Value Reference Range Interpretation Comments PROTIME PATIENT (test See_Comment [Auto mated message] code = 5964-2) The system wh ich generated this result transmitted ref erence range: 12.0 - 1 4.7 Seconds. The re ference range was not u sed to interpret this result as normal/abnor mal. INR (test code = 6301-6) Nor mal INR <1.1; Warfarin Therap eutic range 2.0 to 3. 0 or 2.5 to 3.5, dep ending upon the indica tions. Lab Interpretation (test Normal code = 91184-1) [facility] CenterCBC WITH [id number] 01:36:54 Test Item Value Reference Range Interpretation Comments WBC (test code = See_Comment [Automated 5763-2) message] The sy stem which generated this result transmitted reference range : 4.30 - 11.10 10*3/?L. The reference range was not used to interpret this result as normal/abnormal . RBC (test code = See_Comment [Automated 507-8) message] The sy stem which generated this result transmitted reference range : 3.93 - 5.25 10*6/?L. The reference range was not used to interpret this result as normal/abnormal . HGB (test code = 12.8 g/dL 11.6-15.0 718-7) HCT (test code = 38.6 % 35.7-45.2 4544-3) MCV (test code = 87.1 fL 80.6-95.5 787-2) MCH (test code = 28.9 pg 25.9-32.8 785-6) MCHC (test code = 33.2 g/dL 31.6-35.1 786-4) RDW-SD (test code = 45.1 fL 39.0-49.9 18588-7) RDW-CV (test code = 14.1 % 12.0-15.5 788-0) PLT (test code = See_Comment [Automated 777-3) message] The sy stem which generated this result transmitted reference range : 166 - 358 10*3/ ?L. The reference r betsey was not used to interpret this result as normal/abnormal . MPV (test code = 10.7 fL 9.5-12.9 48289-2) NRBC/100 WBC (test See_Comment [Automat ed code = 9203057886) message] The system which generated this result transmitted reference range : 0.0 - 10.0 /100 WBCs. The refer ence range was not u sed to interpret th is result as normal/abnormal . NRBC x10^3 (test code <0.01 See_Comment [Auto mated = 6206767072) message] The s ystem which generated this result transmitted reference range : 10*3/?L. The reference range was not used to interpret this result as normal/abnormal . GRAN MAT (NEUT) % 65.8 % (test code = 770-8) IMM GRAN % (test code 0.30 % = 1469536127) LYMPH % (test code = 18.1 % 736-9) MONO % (test code = 13.6 % 5905-5) EOS % (test code = 1.4 % 713-8) BASO % (test code = 0.8 % 706-2) GRAN MAT x10^3(ANC) 4.26 10*3/uL 1.88-7.09 (test code = 3522064350) IMM GRAN x10^3 (test <0.03 0.00-0.06 code = 4409341095) LYMPH x10^3 (test code 1.17 10*3/uL 1.32-3.29 L = 731-0) MONO x10^3 (test code 0.88 10*3/uL 0.33-0.92 = 742-7) EOS x10^3 (test code = 0.09 10*3/uL 0.03-0.39 711-2) BASO x10^3 (test code 0.05 10*3/uL 0.01-0.07 = 704-7) Lab Interpretation Abnormal (test code = 24919-1) [facility] CenterLAB ONLY COVID [id number] 15:53:00COVID DMT InterpretationInterpretation/Recommendations: Molecular NAAT Tests for Active Infection with the SARS-CoV-2 Virus: This result indicates that the patient has tested negative on one occasion for the SARS-CoV-2 virus that causes COVID-19 illness. This most likely indicates that the patient does not have an active infection with the SARS-CoV-2 virus. However, infection is not completely ruled out as the false negative rate for molecular NAAT testing using a nasopharyngeal sample can be up to 30%, mostly dependent on the timing of sample collection in relation to illness onset and any deficiencies in sampling techniques. If the patient continues to have persistent or worsening symptoms concerning for COVID-19 illness, a repeat NAAT test (PCR, Rapid ID Now, etc.) should be performed, at which time the SARS-CoV-2 virus - if present - may have reached a detectable viral load (usually peaking by the end of the first week of symptoms). Tests for IgM and/or IgG Antibodies to SARS-CoV-2 Virus: Testing for IgM and IgG antibodies 1-3 weeks after illness onset will indicate whether the patient has produced antibodies to the virus. At this time, it is not known if the production of antibodies - specifically IgG antibodies - indicates whether the patient is immune to future infections with the SARS-CoV-2 virus. ? ? Interp retation Result Comments: These interpretation comments are based upon aggregate COVID-19 test results pooled from [facility]. They apply to the following tests offered at [facility] and assume the acceptable specimen type(s) were used: A. Tests for the Identification of SARS-CoV-2 RNA (Molecular NAAT Tests): ?- SARS-CoV-2 PCR assays including [place] Aptima, [place] Fusion, [place]l RealTime, and [employer] Xpert Xpress. ?- SARS-CoV-2 Rapid ID NOW by the ID NOW assay. ? B. Tests for the Identification of SARS-CoV-2 Antibodies: ?- Chemiluminescent immunoassays including Access SARS-CoV-2 IgM (DXI 600), [place]ander MountainS Dgar-AUMP-OhK-2 IgG (Vitros 5600 and Vitros 3600), and Morel SARS-CoV-2 IgG (SCREENING REPRESENTATIVE I System). These interpretations are autopopulated into [facility] based on computerized algorithms matching an interpretation code to the patient's set of test results, and a clinical pathologist evaluates the comments for accuracy. However, these comments do not consider testing a patient may have hadoutside of the [facility] system. If results for COVID-19 infection continue to be negative in the contextof a suspected viral respiratory illness, it is possible the patient may have an infection with another respiratory virus. Influenza testing and a respiratory pathogen panel if clinically indicated maybe beneficial in this setting. If there continues to be a high degree of clinical suspicion for COVID- 19 illness despite multiple negative tests on nasopharyngeal specimens, then it may be necessary totest the patient for the SARS-CoV-2 virus using lower respiratory tract samples (such as sputum, bronchoalveolar lavage fluid (BAL), tracheal aspirate, etc.). ? [facility] LABORATORY SERVICESCOVID WssqicaZYBX-AjF-6 Rapid ID NOW (no units) ? ? Date ? Value ? 08/10/2020 ? Not Detected ? [facility] LABORATORY SERVICES [facility]CBC with [id number] 10:35:00 Test Item Value Reference Range Interpretation Comments WBC (test code = See_Comment [Automated 6690-2) message] The sy stem which generated this result transmitted reference range : 4.30 - 11.10 10*3/?L. The reference range was not used to interpret this result as normal/abnormal . RBC (test code = See_Comment L [Automated 789-8) message] The sy stem which generated this result transmitted reference range : 3.93 - 5.25 10*6/?L. The reference range was not used to interpret this result as normal/abnormal . HGB (test code = 7.7 g/dL 11.6-15 L 718-7) HCT (test code = 24.3 % 35.7-45.2 L 4544-3) MCV (test code = 86.8 fL 80.6-95.5 787-2) MCH (test code = 27.5 pg 25.9-32.8 785-6) MCHC (test code = 31.7 g/dL 31.6-35.1 786-4) RDW-SD (test code = 45.4 fL 39-49.9 81559-2) RDW-CV (test code = 14.4 % 12-15.5 788-0) PLT (test code = See_Comment L [Automated 777-3) message] The sy stem which generated this result transmitted reference range : 166 - 358 10*3/ ?L. The reference r betsey was not used to interpret this result as normal/abnormal . MPV (test code = 12.2 fL 9.5-12.9 10346-7) NRBC/100 WBC (test See_Comment [Automat ed code = 8654085372) message] The system which generated this result transmitted reference range : 0.0 - 10.0 /100 WBCs. The refer ence range was not u sed to interpret th is result as normal/abnormal . NRBC x10^3 (test code <0.01 See_Comment [Auto mated = 4606332450) message] The s ystem which generated this result transmitted reference range : 10*3/?L. The reference range was not used to interpret this result as normal/abnormal . GRAN MAT (NEUT) % 71.5 % (test code = 770-8) IMM GRAN % (test code 1.10 % = 7520588806) LYMPH % (test code = 13.6 % 736-9) MONO % (test code = 12.4 % 5905-5) EOS % (test code = 1.0 % 713-8) BASO % (test code = 0.4 % 706-2) GRAN MAT x10^3(ANC) 6.73 10*3/uL 1.88-7.09 (test code = 8846478164) IMM GRAN x10^3 (test 0.10 10*3/uL 0-0.06 H code = 5552789201) LYMPH x10^3 (test code 1.28 10*3/uL 1.32-3.29 L = 731-0) MONO x10^3 (test code 1.17 10*3/uL 0.33-0.92 H = 742-7) EOS x10^3 (test code = 0.09 10*3/uL 0.03-0.39 711-2) BASO x10^3 (test code 0.04 10*3/uL 0.01-0.07 = 704-7) Lab Interpretation Abnormal (test code = 50906-6) [facility]He[facility] Surface [id number] 18:14:00 Test Item Value Reference Range Interpretation Comments HBsAg Semi-Quantitative (test code = Negative Negative 5195-3) General acute hospital [id number] 12:16:46 Test Item Value Reference Range Interpretation Comments ANTIBODY ID (test code Anti-Sara Perfo rmed at [facility] = 245) Laboratory Serv [facility] Blood Bank3 [facility] s [address]Yytj Free: [phone] A No. [id number] General acute hospital [id number] 12:16:45 Test Item Value Reference Range Interpretation Comments ANTIBODY ID (test code Anti-Sara Perfo rmed at [facility] = 245) Laboratory Serv [facility] Blood Bank3 [facility] s [address]Tqeu Free: [phone] A No. [id number] General acute hospital [id number] 12:16:45 Test Item Value Reference Range Interpretation Comments ANTIBODY ID (test code Anti-Sara Perfo rmed at [facility] = 245) Laboratory Serv [facility] Blood Bank3 01 [facility] s [address]Xbrt Free: [phone] A No. [id number] [facility] CenterRHO (D) IMMUNE [id number] 09:51:49 Test Item Value Reference Range Interpretation Comments RHIG CANDIDATE? No- see comment Patient i s not a (test code = candidate for R hIg- 5055) Patient is Rh Positive.Perfor med at [facility] Laboratory Services - [facility] Blood [address] [place] [id number] Free: [phone] A No. [id number] [facility] CenterAD OR LANA ONLY - [id number] 09:42:00 Test Item Value Reference Range Interpretation Comments RPR (Qualitative) (test code = Nonreactive Nonreactive 88757-4) Lab Interpretation (test code = Normal 82062-8) [facility] CenterType and Screen - ONCE [id number] 06:35:38 Test Item Value Reference Range Interpretation Comments ABO & RH (test code A Positive Performe d at [facility] = 20) Laboratory [facility] Blood Bank1 [address]Toll Free: [phone] A No. [id number] IAT (test code = Positive Performed a t [facility] 1185) Laboratory [facility] Blood Bank1 [address] [place], [place] [address]Toll Free: [phone] A No. [id number] [facility] CenterHIV 1/2 AG-AB WITH [id number] 06:23:00 Test Item Value Reference Range Interpretation Comments HIV Negative Negative Semi-quantitative (test code = 35338-8) [place]TA (test code = Non-reactive for HIV-1 MAR[place]TA) antigen and HIV-1/HIV-2 antibodies. ?No laboratory evidence of HIV infection. ?Repeat in 2-4 weeks if acute HIV infection is suspected. [facility] CenterCOVID-19 (ID NOW RAPID TESTING)2020-08-11 05:36:00 Test Item Value Reference Range Interpretation Comments SARS-CoV-2 Rapid ID NOW Not Detected Not Detected (test code = 79045-0) MAR[place]ETTA (test code = MARIETTA) ID NOW COVID-19 Assay is an isothermal nucleic acid amplification test intended for the qualitative detection of nucleic acid from SARS-CoV-2 viral RNA in nasopharyngeal (TECHNICAL MARKETING ENGINEER) specimens. It is used under Emergency Use Authorization (EUA) by FDA. The limit of detection (LOD) of the assay is 125 Genome Equivalents/mL. A positive result is indicative of the presence of SARS-CoV-2 RNA. ?Clinical correlation with patient history and other diagnostic information is necessary to determine patient infection status. A negative (Not Detected) result does not preclude SARS-CoV-2 infection. In patients with clinical symptoms and other tests that are consistent with SARS-CoV-2 infection, negative results should be treated as presumptive negative and a new specimen should be tested with alternative PCR molecular test. Invalid: Please collect a new specimen for repeat patient testing if clinically indicated. Lab Interpretation Normal (test code = 39233-0) [facility] with [id number] 05:03:00 Test Item Value Reference Range Interpretation Comments WBC (test code = See_Comment [Automated 1190-2) message] The sy stem which generated this result transmitted reference range : 4.30 - 11.10 10*3/?L. The reference range was not used to interpret this result as normal/abnormal . RBC (test code = See_Comment L [Automated 929-8) message] The sy stem which generated this result transmitted reference range : 3.93 - 5.25 10*6/?L. The reference range was not used to interpret this result as normal/abnormal . HGB (test code = 9.3 g/dL 11.6-15 L 718-7) HCT (test code = 29.1 % 35.7-45.2 L 4544-3) MCV (test code = 86.6 fL 80.6-95.5 787-2) MCH (test code = 27.7 pg 25.9-32.8 785-6) MCHC (test code = 32.0 g/dL 31.6-35.1 786-4) RDW-SD (test code = 45.1 fL 39-49.9 81428-1) RDW-CV (test code = 14.3 % 12-15.5 788-0) PLT (test code = See_Comment [Automated 777-3) message] The sy stem which generated this result transmitted reference range : 166 - 358 10*3/ ?L. The reference r betsey was not used to interpret this result as normal/abnormal . MPV (test code = 12.3 fL 9.5-12.9 11531-0) NRBC/100 WBC (test See_Comment [Automat ed code = 4005511067) message] The system which generated this result transmitted reference range : 0.0 - 10.0 /100 WBCs. The refer ence range was not u sed to interpret th is result as normal/abnormal . NRBC x10^3 (test code <0.01 See_Comment [Auto mated = 2323931478) message] The s ystem which generated this result transmitted reference range : 10*3/?L. The reference range was not used to interpret this result as normal/abnormal . GRAN MAT (NEUT) % 67.9 % (test code = 770-8) IMM GRAN % (test code 0.80 % = 6817193941) LYMPH % (test code = 18.3 % 736-9) MONO % (test code = 12.4 % 5905-5) EOS % (test code = 0.3 % 713-8) BASO % (test code = 0.3 % 706-2) GRAN MAT x10^3(ANC) 6.22 10*3/uL 1.88-7.09 (test code = 8602613956) IMM GRAN x10^3 (test 0.07 10*3/uL 0-0.06 H code = 0411500979) LYMPH x10^3 (test code 1.68 10*3/uL 1.32-3.29 = 731-0) MONO x10^3 (test code 1.14 10*3/uL 0.33-0.92 H = 742-7) EOS x10^3 (test code = 0.03 10*3/uL 0.03-0.39 711-2) BASO x10^3 (test code 0.03 10*3/uL 0.01-0.07 = 704-7) Lab Interpretation Abnormal (test code = 48324-0) [facility] URINALYSIS W/O SPECIFIC [id number] 19:14:00 Test Item Value Reference Range Interpretation Comments POCT PH U (test code = 3254) n/a 5-8 POCT U LEUK EST (test code = 3263) n/a Negative - Negative POCT U NIT (test code = 3262) n/a Negative - Negative POCT U PROT (test code = 3259) neg Negative - Negative POCT U GLU (test code = 3256) neg Negative - Negative POCT U KETONE (test code = 3258) n/a Negative - Negative POCT U BLD (test code = 3257) n/a Negative - Negative Lab Interpretation (test code = Normal 63846-4) [facility]>14 WEEKS US [id number] 20:04:17[facility]/O SPECIFIC [id number] 19:43:00 Test Item Value Reference Range Interpretation Comments POCT PH U (test code = 3254) n/a 5-8 POCT U LEUK EST (test code = 3263) n/a Negative - Negative POCT U NIT (test code = 3262) n/a Negative - Negative POCT U PROT (test code = 3259) neg Negative - Negative POCT U GLU (test code = 3256) neg Negative - Negative POCT U KETONE (test code = 3258) n/a Negative - Negative POCT U BLD (test code = 3257) n/a Negative - Negative Lab Interpretation (test code = Normal 43440-1) [facility] URINALYSIS W/O SPECIFIC [id number] 16:43:00 Test Item Value Reference Range Interpretation Comments POCT PH U (test code = 3254) n/a 5-8 POCT U LEUK EST (test code = 3263) n/a Negative - Negative POCT U NIT (test code = 3262) n/a Negative - Negative POCT U PROT (test code = 3259) neg Negative - Negative POCT U GLU (test code = 3256) neg Negative - Negative POCT U KETONE (test code = 3258) n/a Negative - Negative POCT U BLD (test code = 3257) n/a Negative - Negative [facility] - [id number] 09:17:00 Test Item Value Reference Range Interpretation Comments RPR (Qualitative) (test code = Nonreactive Nonreactive 99874-5) Lab Interpretation (test code = Normal 47531-4) [facility], BLOOD [id number] 20:35:01 Test Item Value Reference Range Interpretation Comments ABO & RH (test code A POSITIVE Performe d at [facility] = 20) Laboratory Serv [facility] Blood Bank3 [facility] s [address]Sfiv Free: [phone] A No. [id number] IAT (test code = Negative Performed a t [facility] 1185) Laboratory Serv [facility] Blood Bank3 [facility] [address]Xyat Free: [phone] A No. [id number] [facility] CenterHIV [facility]/2 AG-AB WITH [id number] 19:11:00 Test Item Value Reference Range Interpretation Comments HIV Negative Negative Semi-quantitative (test code = 30448-5) [place] (test code = Non-reactive for HIV-1 [place]) antigen and HIV-1/HIV-2 antibodies. ?No laboratory evidence of HIV infection. ?Repeat in 2-4 weeks if acute HIV infection is suspected. [facility] HOUR POST [id number] 18:31:00 Test Item Value Reference Range Interpretation Comments GLUC 1 HR (test code = 3866836364) 102 mg/dL 120-170 L Lab Interpretation (test code = Abnormal 85328-2) [facility] CenterCBC WITH [id number] 17:47:00 Test Item Value Reference Range Interpretation Comments WBC (test code = See_Comment [Automated 90-2) message] The sy stem which generated this result transmitted reference range : 4.30 - 11.10 10*3/?L. The reference range was not used to interpret this result as normal/abnormal . RBC (test code = See_Comment L [Automated 929-8) message] The sy stem which generated this result transmitted reference range : 3.93 - 5.25 10*6/?L. The reference range was not used to interpret this result as normal/abnormal . HGB (test code = 9.9 g/dL 11.6-15 L 718-7) HCT (test code = 30.8 % 35.7-45.2 L 4544-3) MCV (test code = 91.1 fL 80.6-95.5 787-2) MCH (test code = 29.3 pg 25.9-32.8 785-6) MCHC (test code = 32.1 g/dL 31.6-35.1 786-4) RDW-SD (test code = 47.3 fL 39-49.9 20454-1) RDW-CV (test code = 14.1 % 12-15.5 788-0) PLT (test code = See_Comment [Automated 777-3) message] The sy stem which generated this result transmitted reference range : 166 - 358 10*3/ ?L. The reference r betsey was not used to interpret this result as normal/abnormal . MPV (test code = 11.4 fL 9.5-12.9 36304-1) NRBC/100 WBC (test See_Comment [Automat ed code = 8040093398) message] The system which generated this result transmitted reference range : 0.0 - 10.0 /100 WBCs. The refer ence range was not u sed to interpret th is result as normal/abnormal . NRBC x10^3 (test code <0.01 See_Comment [Auto mated = 6440299353) message] The s ystem which generated this result transmitted reference range : 10*3/?L. The reference range was not used to interpret this result as normal/abnormal . GRAN MAT (NEUT) % 76.8 % (test code = 770-8) IMM GRAN % (test code 1.20 % = 6597551780) LYMPH % (test code = 14.2 % 736-9) MONO % (test code = 7.3 % 5905-5) EOS % (test code = 0.1 % 713-8) BASO % (test code = 0.4 % 706-2) GRAN MAT x10^3(ANC) 7.71 10*3/uL 1.88-7.09 H (test code = 0823687727) IMM GRAN x10^3 (test 0.12 10*3/uL 0-0.06 H code = 8663710355) LYMPH x10^3 (test code 1.43 10*3/uL 1.32-3.29 = 731-0) MONO x10^3 (test code 0.73 10*3/uL 0.33-0.92 = 742-7) EOS x10^3 (test code = <0.03 0.03-0.39 L 711-2) BASO x10^3 (test code 0.04 10*3/uL 0.01-0.07 = 704-7) Lab Interpretation Abnormal (test code = 49792-5) [facility] W/O SPECIFIC [id number] 15:16:00 Test Item Value Reference Range Interpretation Comments POCT PH U (test code = 3254) N/A 5-8 POCT U LEUK EST (test code = N/A Negative - Negative 3263) POCT U NIT (test code = 3262) N/A Negative - Negative POCT U PROT (test code = 3259) Negative Negative - Negative POCT U GLU (test code = 3256) Negative Negative - Negative POCT U KETONE (test code = 3258) N/A Negative - Negative POCT U BLD (test code = 3257) N/A Negative - Negative [facility] [id number] 19:01:00 Test Item Value Reference Range Interpretation Comments POCT PH U (test code = 3254) n/s 5-8 POCT U LEUK EST (test code = 3263) n/a Negative - Negative POCT U NIT (test code = 3262) n/a Negative - Negative POCT U PROT (test code = 3259) neg Negative - Negative POCT U GLU (test code = 3256) neg Negative - Negative POCT U KETONE (test code = 3258) n/a Negative - Negative POCT U BLD (test code = 3257) n/a Negative - Negative [facility] CenterTEST IN QUESTION- MISSING REQUIRED INFO-Q 2020-04-10 06:00:00 Test Item Value Reference Range Interpretation Comments -Q (test code = [place] [address]) complete the test(s) noted below due to missing require d information. MISSING INFO:-Q SEE NOTE 5059-MATERNA L (test code = SERUM AFP ? 78085) ?Maternal Weigh t: MARI[place]TA (test code = PERFORMED [facility]; [address] [place] [address]; MICHAELA GLASGOW MD [facility] W/O SPECIFIC [id number] 18:24:00 Test Item Value Reference Range Interpretation Comments POCT PH U (test code = 3254) n/a 5-8 POCT U LEUK EST (test code = 3263) n/a Negative - Negative POCT U NIT (test code = 3262) n/a Negative - Negative POCT U PROT (test code = 3259) neg Negative - Negative POCT U GLU (test code = 3256) neg Negative - Negative POCT U KETONE (test code = 3258) n/a Negative - Negative POCT U BLD (test code = 3257) n/a Negative - Negative [facility]/O SPECIFIC [id number] 21:40:00 Test Item Value Reference Range Interpretation Comments POCT PH U (test code = 3254) N/A 5-8 POCT U LEUK EST (test code = N/A Negative - Negative 3263) POCT U NIT (test code = 3262) N/A Negative - Negative POCT U PROT (test code = 3259) Negative Negative - Negative POCT U GLU (test code = 3256) Trace Negative - Negative POCT U KETONE (test code = 3258) N/A Negative - Negative POCT U BLD (test code = 3257) N/A Negative - Negative [facility]PO[facility] W/O SPECIFIC [id number] 21:40:00 Test Item Value Reference Range Interpretation Comments POCT PH U (test code = 3254) N/A 5-8 POCT U LEUK EST (test code = N/A Negative - Negative 3263) POCT U NIT (test code = 3262) N/A Negative - Negative POCT U PROT (test code = 3259) Negative Negative - Negative POCT U GLU (test code = 3256) Trace Negative - Negative POCT U KETONE (test code = 3258) N/A Negative - Negative POCT U BLD (test code = 3257) N/A Negative - Negative [facility] W/O SPECIFIC [id number] 19:55:00 Test Item Value Reference Range Interpretation Comments POCT PH U (test code = 3254) n/a 5-8 POCT U LEUK EST (test code = 3263) n/a Negative - Negative POCT U NIT (test code = 3262) n/a Negative - Negative POCT U PROT (test code = 3259) neg Negative - Negative POCT U GLU (test code = 3256) neg Negative - Negative POCT U KETONE (test code = 3258) n/a Negative - Negative POCT U BLD (test code = 3257) n/a Negative - Negative [facility] CenterAD / C - DRUG SCREEN [id number] 22:35:00 Test Item Value Reference Range Interpretation Comments BENZO U (test code = Negative Negative 8881952938) SIMON U (test code = Negative Negative 1756988708) AMPHET (test code = Negative Negative 3652829435) THC (test code = Negative Negative 3099176300) METHADONE (test code = Negative Negative 0347296108) Meth U (test code = Negative Negative 5689927864) OPIATES (test code = Negative Negative 5745557449) Cocaine Metabolite (test Negative Negative code = 7732446301) PROPOXY (test code = Negative Negative 9846509892) Tric U (test code = Negative Negative 7123565157) PCP (test code = Negative Negative 6180370084) OXYCOD (test code = Negative Negative 2301955465) MARIETTA (test code = MAR[place]) Urine Drug Cutoff Ranges Benzodiazepines: ? ? 150 ng/mLBarbiturates: ?200 ng/mLAmphetamine: ? 500 ng/mLCannabinoids: ?50 ?ng/mLMethadone: ? 200 ng/mLMethamphetamine: ? ? 500 ng/mL Opiates: ? 100 ng/mL or 2000 ng/mLCocaine: ? 150 ng/mLPropoxyphene: ?300 ng/mLTricyclics: ?300 ng/mLOxycodone: ? 100 ng/mLPCP: ? 25 ?ng/mL The results are to be used only for medical (i.e., treatment) purposes. Unconfirmed screening results must not be used for non-medical purposes (e.g., employment testing, legal testing). Lab Interpretation (test Normal code = 89863-5) [facility]<14 WEEKS US [id number] 22:32:43Limited USG for FHT: ?Single live IUP measured 8 3/7 weeks, not consistent with LMP. ?Will date by this ultrasound unless clinically indicated otherwise Sly Guo MD ?01/14/2020 ?5:32 [facility]UnB[facility] PO[facility]INALYSIS W/O SPECIFIC [id number] 21:00:00 Test Item Value Reference Range Interpretation Comments POCT PH U (test code = 3254) 5 mg/dl 5-8 POCT U LEUK EST (test code = neg Negative - Negative 3263) POCT U NIT (test code = 3262) neg Negative - Negative POCT U PROT (test code = 3259) neg Negative - Negative POCT U GLU (test code = 3256) neg Negative - Negative POCT U KETONE (test code = 3258) neg Negative - Negative POCT U BLD (test code = 3257) neg Negative - Negative [facility] CenterPOCT [id number] 21:00:00 Test Item Value Reference Range Interpretation Comments POCT PREG (test code = 1605) Positive On board controls acceptable with C Yes Line (test code = 3574) POCT PREG LOT # (test code = 3575) POCT PREG TEST DATE (test code = 3576) [facility]"
[2021-09-16] MEDS ORDERED: CLINDAMYCIN 600MG/D5W 600 MG/50 ML BAG IV ONE (22:12)
[2021-09-16] MEDS ORDERED: BUPIVACAINE 0.5% PF 10 ML VIAL ONE (22:12)
[2021-09-16] MEDS ORDERED: LIDOCAINE 1% MPF 5 ML VIAL ONE (22:12)
[2021-09-16] MEDS ORDERED: NA CHLORIDE 0.9% 1,000 ML ONE ×2 (22:12→23:30)
[2021-09-16 22:22] LABS: Urine Blood 3+ (Negative); Urine Glucose Negative (Negative); Urine Protein Trace (Negative); Urine Specific Gravity >=1.030 (1.005-1.030); Urine pH 5.5 (5.0-7.0)
[2021-09-16 22:43] LABS: Absolute Lymphocytes (CBC) 0.7 K/uL (0.7-4.9); Hematocrit 37.4 % (36.0-45.0); Lymphocytes % 19.8 % (15.3-44.8); MPV 8.9 fL (7.6-11.3); RBC Red Blood Cell Count 4.23 M/uL (3.86-4.86)
[2021-09-16 22:45] LABS: Protime INR 1.22
[2021-09-16 23:06] LABS: BUN Blood Urea Nitrogen 12 mg/dL (7-18); Bicarbonate 23 mmol/L (21-32); Glucose Level 104 mg/dL (74-106); Sodium Level 138 mmol/L (136-145)
[2021-09-16 23:08] LABS: Potassium 2.8 mmol/L (3.5-5.1)
[2021-09-16] MEDS ORDERED: KCL 20 MEQ/100 mL IVPB 100 ML IV ONE (23:30)
[2021-09-16] MEDS ORDERED: POTASSIUM 25 MEQ EFFERV TAB ONE (23:49)
[2021-09-16] MEDS ORDERED: ONDANSETRON 4 MG/2 ML VIAL ONE (23:49)
[2021-09-16] MEDS ORDERED: MORPHINE 4 MG/ML SYR ONE (23:49)
[2021-09-17] MEDS ORDERED: KETOROLAC 30 MG/ML INJ ONE (01:36)
--- NOTE | 2021-09-17 02:22 | ER ---
[facility]urse's Notes [facility] Name: Niharika Ramirez Age: 31 yrs Sex: Female : 1990 Arrival Date: 09/16/2021 Time: 20:23 Bed 22 Private MD: Diagnosis: Disorder of teeth and supporting structures, unspecified;Hypokalemia;Cellulitis of face Presentation: 09/16 20:34 Chief complaint: Patient states: I have an abscess on the inside of my left cheek/jaw. ld1 I have been having diarrhea, fatigue, SOB and a headache. Coronavirus screen: Client presents with at least one sign or symptom that may indicate coronavirus-19. Standard/surgical mask placed on the client. Ebola Screen: No symptoms or risks identified at this time. Initial Sepsis Screen: Does the patient meet any 2 criteria? No. Patient's initial sepsis screen is negative. Does the patient have a suspected source of infection? No. Patient's initial sepsis screen is negative. Risk Assessment: Do you want to hurt yourself or someone else? Patient reports no desire to harm self or others. Onset of symptoms was September 16, 2021 at 20:36. 20:34 Method Of Arrival: Ambulatory ld1 20:34 Acuity: CALEB 4 ld1 Triage Assessment: 20:36 General: Appears in no apparent distress. comfortable, Behavior is calm, cooperative, ld1 appropriate for age. Pain: Denies pain. EENT: Throat is clear. Neuro: Level of Consciousness is awake, alert, obeys commands, Oriented to person, place, time, situation. Respiratory: Airway is patent Respiratory effort is even, unlabored, Respiratory pattern is regular, symmetrical. 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 - Social history:: Smoking status: Patient denies any tobacco usage or history of. Patient/guardian denies using alcohol. Screenin:43 Abuse screen: Denies threats or abuse. Denies injuries from another. Nutritional ld1 screening: No deficits noted. Tuberculosis screening: No symptoms or risk factors identified. Fall Risk None identified. Assessment: 22:43 Reassessment: See triage assessment. ld1 09/17 00:00 Reassessment: Patient is alert, oriented x 3, equal unlabored respirations, skin bb warm/dry/pink. 02:00 Reassessment: Patient is alert, oriented x 3, equal unlabored respirations, skin bb warm/dry/pink. IV site intact, patent with fluids infusing. 03:06 Reassessment: Patient is alert, oriented x 3, equal unlabored respirations, skin bb warm/dry/pink. pt verbalized understanding of and agrees to plan of care discharge instructions given pt ambulated with steady gait to exit Patient states feeling better. Patient states symptoms have improved. Vital Signs: 09/16 20:34 BP 141 / 96; Pulse 93; Resp 18; Temp 98.4(O); Pulse Ox 100% on R/A; Weight 54.88 kg; ld1 Height 5 ft. 8 in. (172.72 cm); Pain 0/10; 22:44 Pulse 92; Resp 18; Pulse Ox 100% on R/A; ld1 09/17 00:16 BP 132 / 88; Pulse 89; Resp 18; Pulse Ox 100% on R/A; ld1 03:06 BP 147 / 87; Pulse 75; Resp 16 S; Temp 97.7(O); Pulse Ox 98% on R/A; Pain 0/10; bb 09/16 20:34 Body Mass Index 18.40 (54.88 kg, 172.72 cm) ld1 ED Course: 09/16 20:23 Patient arrived in ED. wm 20:36 Triage completed. ld1 20:36 Arm band placed on right wrist. ld1 21:42 Rancho Daly PA is PHCP. cp 21:42 Og Sweet MD is Attending Physician. cp 22:07 Inserted saline lock: 20 gauge in right wrist, using aseptic technique. Blood collected.jb5 22:32 Patient given recliner and warm blanket.. jb5 22:43 Patient has correct armband on for positive identification. Bed in low position. Call ld1 light in reach. Pulse ox on. NIBP on. 22:43 No provider procedures requiring assistance completed. ld1 09/17 02:20 Filipe Francis DDS is Referral Physician. cp 03:06 IV discontinued, intact, bleeding controlled, No redness/swelling at site. Pressure bb dressing applied. Administered Medications: 09/16 22:22 Drug: Clindamycin 600 mg Route: IVPB; Infused Over: 30 mins; Site: right wrist; ld1 09/17 00:15 Follow up: Response: No adverse reaction; IV Status: Completed infusion; IV Intake: [id number] 09/16 22:22 Drug: NS 0.9% 1000 ml Route: IV; Rate: 1 bolus; Site: right wrist; ld1 09/17 00:16 Follow up: Response: No adverse reaction; IV Status: Completed infusion; IV Intake: ld1 1000ml 00:15 Drug: Lidocaine (1 %) 5 ml {Note: administerd by rancho JOHNSTON} Volume: 5 ml; Route: ld1 Infiltration; 00:15 Drug: Marcaine (bupivacaine) (0.5 %) 5 ml {Note: Administered by Rancho JOHNSTON} ld1 Volume: 10 ml; Route: Infiltration; 00:15 Drug: Potassium Chloride 20 mEq Route: IV; Rate: calculated rate; Site: right wrist; ld1 01:34 Follow up: IV Status: Completed infusion; IV Intake: 100ml bb 00:15 Drug: morphine 4 mg Route: IVP; Site: right wrist; ld1 00:16 Follow up: Response: No adverse reaction ld1 00:15 Drug: Potassium Effervescent Tablet 50 mEq Route: PO; ld1 00:16 Follow up: Response: No adverse reaction ld1 01:34 Drug: Ketorolac 15 mg Route: IVP; Site: right forearm; bb 02:48 Follow up: Response: No adverse reaction bb 03:00 Drug: Potassium Effervescent Tablet 50 mEq Route: PO; bb 03:04 Follow up: Response: Medication administered at discharge. bb Intake: 00:15 IV: 50ml; Total: 50ml. ld1 00:16 IV: 1000ml; Total: 1050ml. ld1 01:34 IV: 100ml; Total: 1150ml. bb Outcome: 02:22 Discharge ordered by MD. cp 03:07 Discharged to home ambulatory. bb 03:07 Condition: stable 03:07 Discharge instructions given to patient, Instructed on discharge instructions, follow up and referral plans. medication usage, Demonstrated understanding of instructions, follow-up care, medications, Prescriptions given X 4. 03:07 Patient left the ED. bb Signatures: Echo Morfin RN RN bb Rancho Daly PA PA cp Broussard, Jennifer jb5 Mee Hebert RN RN ld1 Mariaa Iraheta wm Corrections: (The following items were deleted from the chart) 03:06 00:00 Reassessment: Patient is alert, oriented x 3, equal unlabored respirations, skin bb warm/dry/pink. bb
--- NOTE | 2021-09-17 02:22 | EDPHYS ---
Physician Documentation [facility] Name: Niharika Ramirez Age: 31 yrs Sex: Female : 1990 Arrival Date: 09/16/2021 Time: 20:23 Bed 22 Private MD: ED Physician Og Sweet HPI: 09/16 21:55 This 31 yrs old Black Female presents to ER via Ambulatory with complaints of Abscess - cp TOOTH. 21:55 The patient presents with pain, swelling. The problem is located in the left lower jaw. cp 21:55 Onset: The symptoms/episode began/occurred 2 day(s) ago. 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 - Social history:: Smoking status: Patient denies any tobacco usage or history of. Patient/guardian denies using alcohol. ROS: 22:00 Constitutional: Negative for fever, poor PO intake. cp 22:00 Eyes: Negative for injury, pain, redness, and discharge. cp 22:00 ENT: Positive for dental pain, Negative for drainage from ear(s), ear pain, sore throat, difficulty swallowing, difficulty handling secretions. 22:00 Cardiovascular: Negative for chest pain. 22:00 Respiratory: Positive for shortness of breath, Negative for cough, wheezing. 22:00 Abdomen/GI: Positive for diarrhea, Negative for vomiting, constipation. 22:00 Neuro: Positive for headache, Negative for altered mental status, weakness. 22:00 All other systems are negative. Exam: 23:45 ECG was reviewed by the Attending Physician. cp 09/17 02:25 ECG was reviewed by the Attending Physician. cp 22:05 Constitutional: The patient appears in no acute distress, alert, awake, non-toxic, well cp developed, well nourished, uncomfortable. 22:05 Head/face: Noted is swelling, that is mild, of the left mandible, tenderness, that is cp moderate, of the left mandible. 22:05 Eyes: Periorbital structures: appear normal, Conjunctiva: normal, no exudate, no injection, Lids and lashes: appear normal, bilaterally. 22:05 ENT: External ear(s): are unremarkable, Ear canal(s): are normal, clear, TM's: are normal, no evidence of bulging, no erythema, Nose: is normal, Mouth: Lips: moist, Oral mucosa: pink and intact, moist, Gums: swollen, on the left lower back outer gumline, Posterior pharynx: Airway: no evidence of obstruction, patent, Dental exam: dental caries, that is moderate, diffusely, fractured teeth are noted, specifically the lower left third molar (#17), pain, that is severe, specifically in the lower left third molar (#17), Voice: is normal. 22:05 Neck: ROM/movement: is normal, is supple, without pain, no range of motions limitations, no meningismus, Lymph nodes: no appreciated lymphadenopathy. 22:05 Chest/axilla: Inspection: normal, Palpation: is normal, no crepitus, no tenderness. 22:05 Cardiovascular: Rate: normal, Rhythm: regular. 22:05 Respiratory: the patient does not display signs of respiratory distress, Respirations: normal, no use of accessory muscles, no retractions, Breath sounds: are clear throughout, no decreased breath sounds, no stridor, no wheezing. 22:05 Abdomen/GI: Exam negative for discomfort, distension, guarding, Inspection: abdomen appears normal. 22:05 Skin: no rash present. 22:05 Neuro: Orientation: to person, place \T\ time. Mentation: is normal, Motor: moves all fours, strength is normal, Sensation: is normal. Vital Signs: 09/16 20:34 BP 141 / 96; Pulse 93; Resp 18; Temp 98.4(O); Pulse Ox 100% on R/A; Weight 54.88 kg; ld1 Height 5 ft. 8 in. (172.72 cm); Pain 0/10; 22:44 Pulse 92; Resp 18; Pulse Ox 100% on R/A; ld1 09/17 00:16 BP 132 / 88; Pulse 89; Resp 18; Pulse Ox 100% on R/A; ld1 03:06 BP 147 / 87; Pulse 75; Resp 16 S; Temp 97.7(O); Pulse Ox 98% on R/A; Pain 0/10; bb 09/16 20:34 Body Mass Index 18.40 (54.88 kg, 172.72 cm) ld1 MDM: 09/16 21:44 Patient medically screened. cp 09/17 02:22 Data reviewed: vital signs, nurses notes, lab test result(s). 02:22 Counseling: I had a detailed discussion with the patient and/or guardian regarding: the cp historical points, exam findings, and any diagnostic results supporting the discharge/admit diagnosis, lab results, the need for outpatient follow up, for definitive care, maxillary-facial surgery, to return to the emergency department if symptoms worsen or persist or if there are any questions or concerns that arise at home. Response to treatment: the patient's symptoms have mildly improved after treatment, and as a result, I will discharge patient. ED course: VSS. Pain improved with meds. Attempt to drain left lower lateral gum line unsuccessful with 18 gauge needle. Mild improvement of pain with mandibular block procedure. Will discharge to home for continued monitoring. 02:29 ED course: review of [place] prescription monitor website negative on inquiry. 09/16 21:46 Order name: CBC with Diff cp 09/16 21:46 Order name: BMP 09/16 21:46 Order name: PT-INR 09/16 21:47 Order name: CBC with Automated Diff; Complete Time: 23:10 EDDC 09/16 21:47 Order name: Basic Metabolic Panel; Complete Time: 23:10 EDDC 09/16 21:47 Order name: Protime (+INR); Complete Time: 23:10 EDDC 09/16 22:22 Order name: Urine Dipstick-Ancillary; Complete Time: 23:10 EDDC 09/16 21:46 Order name: Urine Dipstick-Ancillary (obtain specimen); Complete Time: 22:22 cp 09/16 21:46 Order name: Urine Test (obtain specimen); Complete Time: 22:22 cp 09/16 23:11 Order name: EKG; Complete Time: 23:12 cp 09/16 23:11 Order name: EKG - Nurse/Tech; Complete Time: 23:36 cp 09/17 01:46 Order name: EKG; Complete Time: 01:47 cp 09/17 01:46 Order name: EKG - Nurse/Tech: after potassium infusion; Complete Time: 02:47 cp EC/14 23:45 Rate is 76 beats/min. Rhythm is regular. CT interval is normal. QRS interval is cp prolonged at 110 msec. QT interval is normal. T waves are Inverted in leads III, aVF, V3, V4, V5, V6. Interpreted by me. Reviewed by me. 09/17 02:25 Rate is 70 beats/min. Rhythm is regular. CT interval is normal. QRS interval is cp prolonged at 104 msec. QT interval is normal. Interpreted by me. Reviewed by me. Administered Medications: 09/16 22:22 Drug: Clindamycin 600 mg Route: IVPB; Infused Over: 30 mins; Site: right wrist; ld1 09/17 00:15 Follow up: Response: No adverse reaction; IV Status: Completed infusion; IV Intake: [id number] 09/16 22:22 Drug: NS 0.9% 1000 ml Route: IV; Rate: 1 bolus; Site: right wrist; ld1 09/17 00:16 Follow up: Response: No adverse reaction; IV Status: Completed infusion; IV Intake: ld1 1000ml 00:15 Drug: Lidocaine (1 %) 5 ml {Note: administerd by rancho JOHNSTON} Volume: 5 ml; Route: ld1 Infiltration; 00:15 Drug: Marcaine (bupivacaine) (0.5 %) 5 ml {Note: Administered by [place]} ld1 Volume: 10 ml; Route: Infiltration; 00:15 Drug: Potassium Chloride 20 mEq Route: IV; Rate: calculated rate; Site: right wrist; ld1 01:34 Follow up: IV Status: Completed infusion; IV Intake: 100ml bb 00:15 Drug: morphine 4 mg Route: IVP; Site: right wrist; ld1 00:16 Follow up: Response: No adverse reaction ld1 00:15 Drug: Potassium Effervescent Tablet 50 mEq Route: PO; ld1 00:16 Follow up: Response: No adverse reaction ld1 01:34 Drug: Ketorolac 15 mg Route: IVP; Site: right forearm; bb 02:48 Follow up: Response: No adverse reaction bb 03:00 Drug: Potassium Effervescent Tablet 50 mEq Route: PO; bb 03:04 Follow up: Response: Medication administered at discharge. bb Disposition: 02:30 Chart complete. cp 05:16 Co-signature as Attending Physician, Og Sweet MD. [email or web address] Disposition Summary: 09/17/21 02:22 Discharge Ordered Location: Home cp Problem: new cp Symptoms: have improved cp Condition: Stable cp Diagnosis - Disorder of teeth and supporting structures, unspecified cp - Hypokalemia cp - Cellulitis of face cp Followup: cp - With: Filipe Francis DDS - When: 2 - 3 days - Reason: Recheck today's complaints Discharge Instructions: - Discharge Summary Sheet cp - Dental Abscess cp - Dental Caries, Adult cp - Dental Pain cp - Hypokalemia cp Forms: - Medication Reconciliation Form cp - Thank You Letter cp - Antibiotic Education cp - Prescription Opioid Use cp Prescriptions: - Clindamycin HCl 300 mg Oral Capsule - take 1 capsule by ORAL route every 6 hours for 10 days; 40 capsule; Refills: 0, cp Product Selection Permitted - Ibuprofen 600 mg Oral Tablet - take 1 tablet by ORAL route every 8 hours As needed take with food; 30 tablet; cp Refills: 0, Product Selection Permitted - Tylenol-Codeine #3 300 mg-30 mg Oral - take 2 tablet by ORAL route every 8-12 hours; 15 tablet; Refills: 0, Product cp Selection Permitted - Potassium Chloride 10 mEq Oral capsule, extended release - take 1 tablet by ORAL route every 12 hours for 5 days; 10 tablet; Refills: 0, cp Product Selection Permitted Signatures: Dispatcher [employer] Echo Mcfadden RN RN Rancho Noel, PA PA cp Og Sweet MD MD [email or web address] Mee Hebert RN RN ld1 Corrections: (The following items were deleted from the chart) 09/18 01:49 09/16 22:00 Abdomen/GI: Negative for vomiting, diarrhea, constipation, cp cp
[2021-09-17] MEDS ORDERED: POTASSIUM 25 MEQ EFFERV TAB ONE (02:53)
[2021-09-17 03:29] VITALS: BP 147/87; TEMP 97.7; O2SAT 98
== END 2021-09-17 03:07 | disposition home or self-care (01) ==
LOC: ER 20:19
DX: L03.211 Cellulitis of face (principal); E87.6 Hypokalemia
CPT/HCPCS: 93005 ×2; 85025; 80048; 36415; 85610; 81003; 99284; J3480; J7030 ×2; J2405

== ENCOUNTER 2025-06-13 13:24 | Emergency (ER) | payer BC, SELFPAY ==
[2025-06-13] MEDS ORDERED: ACETAMINOPHEN 500 MG TAB ONE (13:34)
[2025-06-13 14:05] LABS: Urine Culture Reflex Order REFLEXED; Urine Microscopic Reflex YN ORDER UMIC; Urine Yeast (Budding) Trace /HPF (None Seen)
[2025-06-13 14:09] LABS: Influenza A Ag Negative; Influenza B Ag Negative; SARS-CoV-2 Antigen Rapid Res Negative (Negative)
--- NOTE | 2025-06-13 15:14 | RAD REPORT ---
EXAMINATION: ONE VIEW CHEST XR CLINICAL INDICATION: Female, 35 years old.,Cough;Dyspnea TECHNIQUE: Frontal chest projection is submitted. Examination is limited by patient positioning and t echnique. COMPARISON: No prior exam. FINDINGS: The lungs are well inflated and clear. No pneumothorax or sizable effusion. The heart is normal in s ize. Mediastinal contours are unremarkable. IMPRESSION: No acute intrathoracic abnormalities.
--- NOTE | 2025-06-13 15:39 | EDPHYS ---
Physician Documentation [facility] Name: Niharika Ramirez Age: 35 yrs Sex: Female : 1990 Arrival Date: 06/13/2025 Time: 13:24 Bed 11 Private MD: ED Physician Matt Dunn HPI: 06/13 15:55 This 35 yrs old Black Female presents to ER via Ambulatory with complaints of Shortness kb Of Breath, Dizziness, General Weakness. 15:55 Pt is a 35 year old female who presents for cough and congestion that have been ongoing kb for 3 days. STates she woke up this morning with weakness, shortness of breath and dizziness so she decided to come in for evaluation. Denies fever. 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 - Infectious Disease History:: Denies. - Social history:: Smoking status: Patient denies any tobacco usage or history of. ROS: 15:51 Constitutional: As per HPI kb Exam: 15:51 Constitutional: This is a well developed, well nourished patient who is awake, alert, kb and in no acute distress. Head/Face: Normocephalic, atraumatic. ENT: Moist Mucous membranes Cardiovascular: Regular rate Respiratory: Respirations even and unlabored. No increased work of breathing. Talking in full sentences Skin: Warm, dry with normal turgor. Normal color. MS/ Extremity: Pulses equal, no cyanosis. Neurovascular intact. Full, normal range of motion. Neuro: Awake and alert, GCS 15, oriented to person, place, time, and situation. Vital Signs: 13:36 BP 133 / 95; Pulse 74; Resp 16; Temp 98.6; Pulse Ox 100% ; Weight 54.88 kg; Height 5 dd2 ft. 8 in. ; Pain 5/10; 15:17 BP 131 / 92; Pulse 63; Resp 18; Pulse Ox 100% on R/A; kj2 16:09 BP 129 / 86; Pulse 68; Resp 18; Temp 98.5; Pulse Ox 100% on R/A; kj2 13:36 Body Mass Index 18.40 (54.88 kg, 172.72 cm) dd2 13:36 Pain Scale: Adult dd2 MDM: 13:29 Medical Screening Exam initiated kb 15:52 Differential diagnosis: pneumonia, covid, flu, uri, pregnany, dehydration. Data kb reviewed: vital signs, nurses notes. Independent interpretation of the following test(s) in the Emergency Department X-Ray: My interpretation is no pneumonia. Counseling: I had a detailed discussion with the patient and/or guardian regarding the historical points, exam findings, and any diagnostic results supporting the discharge/admit diagnosis, lab results, radiology results, the need for outpatient follow up, a family practitioner, to return to the emergency department if symptoms worsen or persist or if there are any questions or concerns that arise at home. 15:54 Test considered but Not performed: Labs: cbc, cmp considered but vitals wnl, pt kb nontoxic in appearance, afebrile and tolerating po intake. 06/13 13:39 Order name: COVID-19 Ag + Flu A+B Ag; Complete Time: 14:12 kb 06/13 13:39 Order name: UA Rfx Sanjay Cult if indicated; Complete Time: 14:12 kb 06/13 13:39 Order name: Test, Urine; Complete Time: 14:27 kb 06/13 14:11 Order name: Urine Culture EDCA 06/13 13:39 Order name: Chest Single View XRAY; Complete Time: 15:20 kb Administered Medications: 13:48 Drug: Acetaminophen PO 1000 mg PO once {Note: pain 5/10 PRIEST.} Route: PO; ll1 16:02 Follow up: Response: No adverse reaction kj2 16:08 Drug: metroNIDAZOLE PO 2 grams PO once Route: PO; kj2 16:08 Follow up: Response: Medication administered at discharge. kj2 Disposition: 16:12 Co-signature as Attending Physician, Matt Dunn MD. rn Disposition Summary: 06/13/25 15:38 Discharge Ordered Notes: Location: Home kb Condition: Stable kb Diagnosis - Acute upper respiratory infection, unspecified kb - Trichomoniasis, unspecified kb Followup: kb - With: Emergency Department - When: As needed - Reason: Worsening of condition Followup: kb - With: Private Physician - When: 2 - 3 days - Reason: Recheck today's complaints, Continuance of care, Re-evaluation by your physician Discharge Instructions: - Discharge Summary Sheet kb - Trichomoniasis kb - Upper Respiratory Infection, Adult, [id number] kb Forms: - Medication Reconciliation Form kb - Antibiotic Education kb - Prescription Opioid Use kb - Patient Portal Instructions kb - Leadership Thank You Letter kb Signatures: Dispatcher [employer] EDBelle Pedersen, POWER LINEMAN-C POWER LINEMAN-Ckb Matt Dunn MD MD rn Lewis, Lynsay RN RN ll1 Lorenza Seay RN RN kj2 VINOD RODRIGUEZ RN RN dd2
--- NOTE | 2025-06-13 15:39 | ER ---
Nurse's Notes [facility] Name: Niharika Ramirez Age: 35 yrs Sex: Female : 1990 Arrival Date: 06/13/2025 Time: 13:24 Bed 11 Private MD: Diagnosis: Acute upper respiratory infection, unspecified;Trichomoniasis, unspecified Presentation: 06/13 13:36 Chief complaint: Patient states: COUGH AND CONGESTION X 2 DAYS, WOKE UP TODAY WITH dd2 HEADACHE, DIZZINESS, WEAK, SHORT OF BREATH. Coronavirus screen: congestion, cough unrelated to allergies, fatigue, headache, shortness of breath. Ebola Screen: No symptoms or risks identified at this time. Initial Sepsis Screen: Does the patient meet any 2 criteria? No. Patient's initial sepsis screen is negative. Does the patient have a suspected source of infection? No. Patient's initial sepsis screen is negative. Risk Assessment: Do you want to hurt yourself or someone else? Patient reports no desire to harm self or others. Onset of symptoms was June 11, 2025. 13:36 Method Of Arrival: Ambulatory dd2 13:36 Acuity: CALEB 3 dd2 Triage Assessment: 13:38 General: Appears in no apparent distress. uncomfortable, Behavior is calm, cooperative, dd2 appropriate for age. Pain: Complains of pain in HEAD. EENT: Reports nasal congestion. Respiratory: Reports shortness of breath cough that is Onset: The symptoms/episode began/occurred this morning, the patient has mild shortness of breath. 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 - Infectious Disease History:: Denies. - Social history:: Smoking status: Patient denies any tobacco usage or history of. Screenin:40 [facility] ED Fall Risk Assessment (Adult) History of falling in the last 3 months, ll1 including since admission No falls in past 3 months (0 pts) Confusion or Disorientation No (0 pts) Intoxicated or Sedated No (0 pts) Impaired Gait No (0 pts) Mobility Assist Device Used No (0 pt) Altered Elimination No (0 pt) Score/Fall Risk Level 0 - 2 = Low Risk Maintained a safe environment, Hourly rounding (assess needs \T\ fall precautionary measures) done. Abuse screen: Denies threats or abuse. Nutritional screening: No deficits noted. Tuberculosis screening: No symptoms or risk factors identified. Assessment: 13:48 Reassessment: No changes from previously documented assessment. Patient and/or family ll1 updated on plan of care and expected duration. Pain level reassessed. 15:17 Reassessment: Patient appears in no apparent distress at this time. Patient and/or kj2 family updated on plan of care and expected duration. Pain level reassessed. 15:20 Cardiovascular: Rhythm is sinus rhythm. Respiratory: Airway is patent Respiratory kj2 effort is unlabored. 16:00 Reassessment: Patient appears in no apparent distress at this time. Patient and/or kj2 family updated on plan of care and expected duration. Pain level reassessed. 16:01 Respiratory: Breath sounds are clear bilaterally. kj2 Vital Signs: 13:36 BP 133 / 95; Pulse 74; Resp 16; Temp 98.6; Pulse Ox 100% ; Weight 54.88 kg; Height 5 dd2 ft. 8 in. ; Pain 5/10; 15:17 BP 131 / 92; Pulse 63; Resp 18; Pulse Ox 100% on R/A; kj2 16:09 BP 129 / 86; Pulse 68; Resp 18; Temp 98.5; Pulse Ox 100% on R/A; kj2 13:36 Body Mass Index 18.40 (54.88 kg, 172.72 cm) dd2 13:36 Pain Scale: Adult dd2 ED Course: 13:27 Patient arrived in ED. im 13:29 Belle Liang FNP-C is PHCP. kb 13:29 Matt Dunn MD is Attending Physician. kb 13:38 Triage completed. dd2 13:38 Arm band placed on right wrist. dd2 13:45 Patient has correct armband on for positive identification. Bed in low position. ll1 Provided Education on: ER procedures and process. 13:47 Jennifer Ortiz, PABLO is Primary Nurse. ll1 13:47 UA Rfx Sanjay Cult if indicated Sent. ll1 13:48 Test, Urine Sent. ll1 13:48 COVID-19 Ag + Flu A+B Ag Sent. ll1 14:32 Chest Single View XRAY In Process Unspecified. EDMS 16:01 No provider procedures requiring assistance completed. Patient did not have IV access kj2 during this emergency room visit. Administered Medications: 13:48 Drug: Acetaminophen PO 1000 mg PO once {Note: pain 5/10 PRIEST.} Route: PO; ll1 16:02 Follow up: Response: No adverse reaction kj2 16:08 Drug: metroNIDAZOLE PO 2 grams PO once Route: PO; kj2 16:08 Follow up: Response: Medication administered at discharge. kj2 Medication: 16:02 VIS not applicable for this client. kj2 Outcome: 15:38 Discharge ordered by . jesi 16:02 Discharged to home ambulatory, kj2 16:02 Condition: stable 16:02 Discharge instructions given to patient, Instructed on discharge instructions, follow up and referral plans. Demonstrated understanding of instructions, follow-up care, 16:10 Patient left the ED. kj2 Signatures: Dispatcher [employer] EDOH Belle Liang FNP-C FNP-Jennifer Rodriguez RN RN ll1 Arianna Musa Krystal, RN RN kj2 VINOD RODRIGUEZ RN RN dd2
[2025-06-13 16:22] VITALS: O2SAT 100
[2025-06-13 16:26] VITALS: BP 129/86; TEMP 98.5
== END 2025-06-13 16:10 | disposition home or self-care (01) ==
LOC: ER 13:24
DX: J06.9 Acute upper respiratory infection, unspecified (principal); A59.9 Trichomoniasis, unspecified; Z11.52 Encounter for screening for COVID-19
CPT/HCPCS: 36415; 71045; 81001; 81025; 87086; 87088; 87428; 99283